=== PATIENT | female | born 1965 | race Caucasian/White ===

== ENCOUNTER 2021-03-25 07:33 | Outpatient (REF) | payer OTHER, SELFPAY ==
--- NOTE | ~2021-03-25 | MM_ITS ---
EXAMINATION: MM SCREENING DIGITAL BREAST TOMOSYNTHESIS, BILATERAL CLINICAL INFORMATION: Screening. Asymptomatic. The lifetime risk of breast cancer based on the Tyrer-Cuzick Model is 10%. COMPARISON: Mammography: 02/01/2020, 01/19/2019, 04/27/2017, 03/14/2016; ultrasound right breast 03/21/2016. TECHNIQUE: Digital breast tomosynthesis is performed in both the craniocaudal and mediolateral oblique views along with computer-aided detection (CAD). Synthesized 2D images are generated from the tomosynthesis. FINDINGS: There are scattered areas of fibroglandular density (ACR BI-RADS breast composition Category b). There are no significant masses, abnormal calcifications, or other abnormalities. There is small smooth stable nodule central right breast similar to prior exams, likely the cyst noted on prior ultrasound. The axilla and skin contours are unremarkable. No significant changes. MM/MM tomosynthesis screening BI IMPRESSION: No mammographic evidence of malignancy. ASSESSMENT: BI-RADS 2: Benign RECOMMENDATION: Routine annual mammography screening. This patient's information was entered into a reminder system with a target due date for their next mammogram.
== END 2021-03-25 07:34 | disposition home or self-care (01) ==
LOC: HO.MAMMO 07:33
PROVIDERS: Visit Provider Family Medicine
DX: Z12.31 Encounter for screening mammogram for malignant neoplasm of breast (principal)
CPT/HCPCS: 77063; 77067

== ENCOUNTER → 2021-04-16 08:32 | Outpatient (BNVA) | payer OTHER, SELFPAY | PROVIDERS: PCP Family Medicine; Visit Provider Obstetrics & Gynecology ==

== ENCOUNTER 2022-01-17 10:29 | Emergency (ER) | payer OTHER, SELFPAY ==
--- NOTE | ~2022-01-17 | CT_ITS ---
EXAMINATION: CT ABDOMEN AND PELVIS WITH CONTRAST CLINICAL INFORMATION: Right upper quadrant pain. Gallstones. COMPARISON: Previous abdominal ultrasound from earlier the same day TECHNIQUE: Multidetector volumetric images were obtained from the superior aspect of the liver through the pubic symphysis following administration 85 mL of Omnipaque 350 intravenous contrast. Sagittal and coronal reformatted images were obtained on the technologist's workstation. Oral contrast: Yes This CT examination was performed using dose optimization techniques as appropriate, variously including the following: *Automated exposure control *Adjustment of mA and/or kV according to patient size (this includes techniques or standardized protocols for targeted exams where dose is matched to indication/reason for exam; i.e. extremities or head) *Use of iterative reconstruction technique DLP: 745 mGy-cm FINDINGS: LUNG BASES: The visualized lung bases are unremarkable. LIVER, GALLBLADDER, AND BILIARY TREE: The liver is normal in size, shape, and attenuation. No focal hepatic lesion or biliary ductal dilatation is present. There is a gallstone in the gallbladder. The gallbladder is otherwise normal-appearing. PANCREAS: Unremarkable. SPLEEN: Unremarkable. ADRENAL GLANDS: Unremarkable. KIDNEYS AND URETERS: The kidneys are normal in size, shape, and attenuation. No hydronephrosis, hydroureter, or calculi seen. No perinephric stranding. BLADDER: Not optimally distended. There may be mild diffuse bladder wall thickening. GASTROINTESTINAL TRACT: There is mild diverticulosis of the colon. No evidence of diverticulitis. The small and large bowel are otherwise unremarkable. The appendix is unremarkable. There is a moderate size esophageal hernia. There is question of wall thickening of the visualized distal thoracic esophagus. ABDOMINAL WALL: No significant hernia is appreciated. LYMPH NODES: Normal. VASCULAR: Unremarkable. PELVIC VISCERA: Unremarkable. OSSEOUS STRUCTURES: Unremarkable. CT/CT abdomen pelvis w IV con IMPRESSION: Gallstone. No evidence of acute cholecystitis by CT scan. Moderate esophageal hernia and question wall thickening of the visualized thoracic esophagus. Diverticulosis of the colon. No evidence of diverticulitis. Bladder not optimally distended. There is question of mild diffuse bladder wall thickening. Fleischner guidelines were followed.
--- NOTE | ~2022-01-17 | US_ITS ---
EXAMINATION: US ABDOMEN LIMITED CLINICAL INFORMATION: Right upper quadrant/epigastric pain. COMPARISON: None TECHNIQUE: Real-time imaging of the right upper quadrant abdominal viscera. FINDINGS: PANCREAS: Not visualized. LIVER: Normal. The liver is normal in size. The liver contour is normal. Parenchymal echogenicity is normal. No focal hepatic lesion. There is no intrahepatic biliary duct dilatation seen. GALLBLADDER: There is a gallstone in the gallbladder measuring 2.3 x 1.9 cm. The gallbladder is normal in size. The gallbladder wall is normal. There is no pericholecystic fluid. COMMON BILE DUCT: Normal in caliber measuring 0.3 cm in diameter. RIGHT KIDNEY: Normal. No hydronephrosis. No renal calculi or focal parenchymal lesions. The kidney measures 11.7 cm in maximum dimension. FREE FLUID: None. US/US abdomen limited IMPRESSION: Gallstone. Nonvisualization of the pancreas.
[2022-01-17 10:37] VITALS: BP 154/82; PULSE 67; RESP 16; TEMP 36.5; O2SAT 100; BMI 34.7
--- NOTE | 2022-01-17 11:13 | ECG_ITS ---
Test Reason : ABDOMINAL PAIN Blood Pressure : / mmHG Vent. Rate : 061 BPM Atrial Rate : 061 BPM P-R Int : 156 ms QRS Dur : 088 ms QT Int : 428 ms P-R-T Axes : 053 008 030 degrees QTc Int : 430 ms Normal sinus rhythm normal ECG No previous ECGs available Referred By: Josefa Mireles Electronically Signed By:Dontrell Prince
[2022-01-17 11:52] LABS: Appearance Urine HAZY; Color Urine YELLOW; Glucose Urine UA NEG (NEG); Leukocyte Esterase Urine NEG (NEG); Nitrite Urine NEG (NEG); PH 6.5 (5.0-8.0); Specific Gravity - Urine 1.015 (1.005-1.025); Urine Blood NEG (NEG); Urine Ketones NEG (NEG); Urine Protein NEG (NEG-TRACE)
[2022-01-17 12:02] LABS: MANUAL DIFF FLAG NO
[2022-01-17] MEDS: Ketorolac Tromethamine 15 MG/ML VIAL IVPUSH (12:02)
[2022-01-17] MEDS: 0.9 % Sodium Chloride 1,000 ML 999 ML IV (12:02)
[2022-01-17] MEDS: Famotidine/PF 20 MG/2 ML VIAL IVPUSH (12:02)
[2022-01-17] MEDS: ondansetron HCL 4 MG/2 ML VIAL IVPUSH (12:02)
[2022-01-17] MEDS: Magnesium Hydrox/Alum Hydrox 30 ML ORAL.SUSP PO (12:03)
[2022-01-17 12:05] LABS: Basophils Percent Auto 0.7 % (0-2); Eosinophils Absolute Auto 0.3 X10*3/uL (0.0-0.4); Eosinophils Percent Auto 4.8 % (0-4); Hematocrit 41.9 % (37.0-47.0); Hemoglobin 13.3 g/dl (12.0-16.0); Imm Gran Abs Auto 0.01 X10*3/uL (0.00-0.03); Imm Gran Pct Auto 0.2 % (0.0-0.4); Lymphocytes Absolute Auto 1.3 X10*3/uL (1.2-4.9); Lymphocytes Percent Auto 21.8 % (20-40); Mean Corpuscular HGB Conc 31.7 g/dl (31.0-35.0); Mean Corpuscular Hemoglobin 24.2 pg (27.0-33.0); Mean Corpuscular Volume 76.3 fL (80.0-98.0); Monocytes Absolute Auto 0.4 X10*3/uL (0.1-1.2); Neutrophils Absolute Auto 3.9 x10*3/uL (2.0-8.3); Neutrophils Percent Auto 65.5 % (45-73); Platelet Count 243 X10*3/uL (160-400); Red Blood Count 5.49 X10*6/uL (4.20-5.50); Red Cell Distribution Width 16.1 % (11.0-16.0)
[2022-01-17 12:18] LABS: COVID-19 Test Negative (Negative); IDNOW Serial# 16C4AD1C
--- NOTE | 2022-01-17 12:21 | ED.ABDPAIN ---
HPI - Abdominal Pain General Chief Complaint: Abdominal Pain Stated Complaint: Abd pain Time Seen by Provider: 01/17/22 10:47 Source: patient Mode of arrival: ambulatory History of Present Illness HPI narrative: 57-year-old female with no significant past medical history presenting to the ED complaining of RUQ abdominal pain radiating around back/epigastrium x3 days. Admits to associated nausea. Reports pain is constant. Denies fever, chills, vomiting, diarrhea/constipation, dysuria/hematuria, CP/SOB, cough MD elicited complaint: abdominal pain Pertinent past history: none Onset (ago): day(s) Related Data Home Medications Medication Instructions Recorded Confirmed fluticasone propionate 250 1 inh INHALATION BID 04/16/21 mcg/actuation blister powder for inhalation (Flovent Diskus) Previous Rx's Medication Instructions Recorded ondansetron 4 mg disintegrating 4 mg PO Q8H PRN #10 tab 01/17/22 tablet oxycodone-acetaminophen 5 mg-325 1 tab PO Q8H PRN 3 Days #9 tab 01/17/22 mg tablet (Percocet) Allergies Allergy/AdvReac Type Severity Reaction Status Date / Time No Known Allergies Allergy Verified 01/17/22 10:40 Review of Systems Review of Systems Constitutional: No Fever, No Chills, No Fatigue, No Malaise ENT/Mouth: No Ear Pain, No Hoarseness, No sore throat, No Rhinorrhea, No Swallowing Difficulty Eyes: No Eye Pain, No Swelling, No Redness Cardiovascular: No Chest Pain, No SOB, No Dyspnea on Exertion, No Orthopnea, No Edema, No Palpitations Respiratory: No Cough, No Sputum, No Dyspnea Gastrointestinal: + Nausea, No Vomiting, No Diarrhea, No Constipation, + Abdominal pain Genitourinary: No irregular bleeding, No Dysuria, No Urinary Frequency, No Hematuria, No Urgency, No Flank Pain Musculoskeletal: No joint pain, No Myalgias, No Joint Swelling Skin: No Skin Lesions, No rash Neuro: No Weakness, No Loss of Consciousness, No Dizziness, No Headache Yes all other systems are reviewed and are negative [facility] Past Medical History Attestation statement: The following information was validated with the patient. Medical History (Updated 01/17/22 @ 14:59 by Denis Curiel MD) Allergies Gallstones Surgical History Hx of foot surgery Family History Family History Paternal Aunt Breast cancer Maternal Aunt Lung cancer Social History Social History Alcohol intake: never Patient Tobacco Use Status: Never used Tobacco Use of substances other than those prescribed or required for medical reasons: No Advance Directives: No Advance Directives Information Provided: No Gender identity: Female Physical Exam ED Vital Signs: Vital Signs - 24 hr 01/17/22 10:37 01/17/22 13:20 01/17/22 13:42 Temperature 97.7 F 97.9 F Pulse Rate 67 57 64 Respiratory Rate 16 18 16 Blood Pressure 154/82 H 115/81 159/84 H Pulse Oximetry 100 100 100 BMI result Body Mass Index 34.7 Const General: cooperative, healthy appearing and no acute distress Orientation/consciousness: patient oriented x3 Limitations: no limitations HENMT Head: Yes normal to inspection and Yes normocephalic Ears: hearing grossly normal bilaterally General nose exam: Normal external nose present Face and sinus: Yes normal facial exam Eyes General: appearance normal, both eyes and all related structures EOM: EOMs intact bilaterally Neck Neck: Yes normal visual inspection and Yes no meningeal signs Resp Effort & Inspection: normal respiratory effort and no respiratory distress Auscultation: clear to auscultation bilaterally Cardio Rate: regular rate Heart sounds: S1 normal heart sound present and S2 normal heart sound present GI Inspection: Yes normal to inspection Palpation (GI): Soft to palpation, Tenderness to palpation present (GI) in the RUQ, no guarding and not rigid General: Yes no CVA tenderness Back/Spine/Pelvis Back: no CVA tenderness Skin Rashes: no rashes Wounds: no wounds Neuro General: patient oriented x3 and no meningeal signs Gait exam (Neuro): Normal gait present Extrem General: Yes normal to inspection, Yes no pedal edema and Yes no calf tenderness Course Course Course Narrative: -labs unremarkable. UA negative. US abdomen limited IMPRESSION: Gallstone. Nonvisualization of the pancreas. >> case discussed with general surgery, Dr. Curiel, recommended CT with IV contrast CT abdomen pelvis w con IMPRESSION: Gallstone. No evidence of acute cholecystitis by CT scan. Moderate esophageal hernia and question wall thickening of the visualized thoracic esophagus. Diverticulosis of the colon. No evidence of diverticulitis. Bladder not optimally distended. There is question of mild diffuse bladder wall thickening. ? -Dr Curiel evaluated patient in the ED, offered patient cholecystectomy however patient would rather wait and follow up outpatient. Dr. Curiel & radiologist reviewed images. Plan will be to DC home with few days of narcotic pain medication and close general surgery follow-up in the office. Discussed with patient and at bedside worrisome signs and symptoms and strict return precautions and needed close follow-up with General surgery. They verbalized understanding and feel safe for discharge home at this time MDM - Abdominal Pain MDM Narrative Medical decision making narrative: 57-year-old female with no significant past medical history presenting to the ED complaining of RUQ abdominal pain radiating around back/epigastrium x3 days. On exam vital signs stable, NAD/nontoxic, abdomen soft with RUQ TTP, no rebound or guarding, no CVAT. Concern for cholecystitis/lithiasis vs pancreatitis vs ? Atypical ACS. Lower concern for renal stone/pyelo. Unlikely appendicitis/diverticulitis plan: Labs, UA, abdomen ultrasound, symptomatic treatment, re-evaluation Differential Diagnosis Differential diagnosis: Likely abdominal pain and pancreatitis Medical Records Attestation: I reviewed the patient's medical records. Lab Data Attestation: I reviewed the patient's lab results. Result diagrams: 01/17/22 11:55 01/17/22 11:55 Labs: Lab Results 01/17/22 01/17/22 01/17/22 Range/Units 11:46 11:55 11:55 WBC 6.0 (4.8-10.8) X10*3/uL RBC 5.49 (4.20-5.50) X10*6/uL Hgb 13.3 (12.0-16.0) g/dl Hct 41.9 (37.0-47.0) % MCV 76.3 L (80.0-98.0) fL MCH 24.2 L (27.0-33.0) pg MCHC 31.7 (31.0-35.0) g/dl RDW 16.1 H (11.0-16.0) % Plt Count 243 (160-400) X10*3/uL MPV 10.0 (9.4-12.3) fL Immature Gran % (Auto) 0.2 (0.0-0.4) % Neut % (Auto) 65.5 (45-73) % Lymph % (Auto) 21.8 (20-40) % [place] % (Auto) 7.0 (2-11) % Eos % (Auto) 4.8 H (0-4) % Baso % (Auto) 0.7 (0-2) % Lymph # (Auto) 1.3 (1.2-4.9) X10*3/uL [place] # (Auto) 0.4 (0.1-1.2) X10*3/uL Eos # (Auto) 0.3 (0.0-0.4) X10*3/uL Baso # (Auto) 0.0 (0.0-0.2) X10*3/uL Abs Immat Gran (auto) 0.01 (0.00-0.03) X10*3/uL Absolute Neuts (auto) 3.9 (2.0-8.3) x10*3/uL Absolute Nucleated RBC 0.000 (0.0-0.012) X10*3/uL Nucleated RBC % (auto) 0.0 (0.0-0.2) /100WBC Sodium 141 (135-145) mmol/L Potassium 4.0 (3.3-5.1) mmol/L Chloride 105 (96-108) mmol/L Carbon Dioxide 27 (22-29) mmol/L Anion Gap 13 (12-20) BUN 13 (9-16) mg/dL Creatinine 0.76 (0.5-1.4) mg/dL Estim Creat Clear Calc 85.2 Estimated GFR > 60 Random Glucose 95 (60-115) mg/dL Calcium 9.9 (8.4-10.2) mg/dL Magnesium 2.2 (1.6-2.6) mg/dL Total Bilirubin 0.9 (0.0-1.0) mg/dL Direct Bilirubin 0.3 (0.0-0.5) mg/dL AST 19 (5-31) U/L ALT 15 (0-31) U/L Alkaline Phosphatase 104 (39-117) U/L Troponin I High Sens (<3.5-17.0) ng/L Total Protein 7.5 (6.5-8.0) g/dL Albumin 4.4 (3.5-5.0) g/dL Lipase 25 (8-78) U/L Urine Color YELLOW Urine Appearance HAZY Urine pH 6.5 (5.0-8.0) Ur Specific [place] 1.015 (1.005-1.025) Urine Protein NEG (NEG-TRACE) MG/DL Urine Glucose (UA) NEG (NEG) MG/DL Urine Ketones NEG (NEG) MG/DL Urine Blood NEG (NEG) Urine Nitrite NEG (NEG) Ur Leukocyte Esterase NEG (NEG) COVID-19 (NETTIE) (Negative) COVID-19 Clin Com 01/17/22 01/17/22 Range/Units 11:55 11:55 WBC (4.8-10.8) X10*3/uL RBC (4.20-5.50) X10*6/uL Hgb (12.0-16.0) g/dl Hct (37.0-47.0) % MCV (80.0-98.0) fL MCH (27.0-33.0) pg MCHC (31.0-35.0) g/dl RDW (11.0-16.0) % Plt Count (160-400) X10*3/uL MPV (9.4-12.3) fL Immature Gran % (Auto) (0.0-0.4) % Neut % (Auto) (45-73) % Lymph % (Auto) (20-40) % [place] % (Auto) (2-11) % Eos % (Auto) (0-4) % Baso % (Auto) (0-2) % Lymph # (Auto) (1.2-4.9) X10*3/uL [place] # (Auto) (0.1-1.2) X10*3/uL Eos # (Auto) (0.0-0.4) X10*3/uL Baso # (Auto) (0.0-0.2) X10*3/uL Abs Immat Gran (auto) (0.00-0.03) X10*3/uL Absolute Neuts (auto) (2.0-8.3) x10*3/uL Absolute Nucleated RBC (0.0-0.012) X10*3/uL Nucleated RBC % (auto) (0.0-0.2) /100WBC Sodium (135-145) mmol/L Potassium (3.3-5.1) mmol/L Chloride (96-108) mmol/L Carbon Dioxide (22-29) mmol/L Anion Gap (12-20) BUN (9-16) mg/dL Creatinine (0.5-1.4) mg/dL Estim Creat Clear Calc Estimated GFR Random Glucose (60-115) mg/dL Calcium (8.4-10.2) mg/dL Magnesium (1.6-2.6) mg/dL Total Bilirubin (0.0-1.0) mg/dL Direct Bilirubin (0.0-0.5) mg/dL AST (5-31) U/L ALT (0-31) U/L Alkaline Phosphatase (39-117) U/L Troponin I High Sens < 3.5 (<3.5-17.0) ng/L Total Protein (6.5-8.0) g/dL Albumin (3.5-5.0) g/dL Lipase (8-78) U/L Urine Color Urine Appearance Urine pH (5.0-8.0) Ur Specific [place] (1.005-1.025) Urine Protein (NEG-TRACE) MG/DL Urine Glucose (UA) (NEG) MG/DL Urine Ketones (NEG) MG/DL Urine Blood (NEG) Urine Nitrite (NEG) Ur Leukocyte Esterase (NEG) COVID-19 (NETTIE) Negative (Negative) COVID-19 Clin Com See Note ECG Data Attestation: I personally reviewed and interpreted this ECG as follows: ECG interpretation date: 01/17/22 ECG interpretation time: 11:25 Interpretation: EKG normal sinus rhythm at a rate of 61. QRS 88. QTC 430. No STEMI Discharge Plan Discharge Clinical Impression: Gallstone Patient Disposition: Home, Self-Care Instructions: Gallstones (ED) Additional Instructions: Your blood work is unremarkable. Ultrasound shows a gallstone. Your evaluated by the general surgeon, and you to follow up with him outpatient If her symptoms persist or worsen, constant worsening pain, develops fever, persistent nausea or vomiting please return to the emergency department. Percocet is an opiate pain medication, take only when pain is severe for the next 3 days. In addition Zofran is an antinausea medication, take as needed Prescriptions: New oxycodone-acetaminophen [Percocet] 5-325 mg tablet 1 tab PO Q8H PRN (Reason: pain, severe) 3 Days Qty: 9 0RF ondansetron 4 mg tablet,disintegrating 4 mg PO Q8H PRN (Reason: nausea and vomiting) Qty: 10 0RF No Action Flovent Diskus 250 mcg/actuation blister with device 1 inh inhalation BID 0RF Referrals: Denis Curiel MD [Physician] - 2 days
[2022-01-17 12:24] LABS: Troponin-I High Sensitivity < 3.5 ng/L (<3.5-17.0)
[2022-01-17 12:25] LABS: Alanine Aminotransferase 15 U/L (0-31); Albumin Level 4.4 g/dL (3.5-5.0); Alkaline Phosphatase 104 U/L (39-117); Anion Gap 13 (12-20); Aspartate Amino Transferase 19 U/L (5-31); Bilirubin Direct 0.3 mg/dL (0.0-0.5); Bilirubin Total 0.9 mg/dL (0.0-1.0); Blood Urea Nitrogen 13 mg/dL (9-16); Calcium 9.9 mg/dL (8.4-10.2); Carbon Dioxide 27 mmol/L (22-29); Chloride 105 mmol/L (96-108); Creatinine Clr Calc Pharmacy 85.2; Estimated Glomerular Filt Rate > 60; Glucose Random 95 mg/dL (60-115); Lipase 25 U/L (8-78); Magnesium 2.2 mg/dL (1.6-2.6); Sodium 141 mmol/L (135-145); Total Protein 7.5 g/dL (6.5-8.0)
[2022-01-17 13:20] VITALS: BP 115/81; PULSE 57; RESP 18; TEMP 36.6; O2SAT 100
[2022-01-17] MEDS: Morphine Sulfate 2 MG/ML CARTRIDGE IVPUSH (13:40)
[2022-01-17 13:42] VITALS: BP 159/84; PULSE 64; RESP 16; O2SAT 100
--- NOTE | 2022-01-17 14:27 | PC.NURSE ---
rn to rn given to letitia, pt/family aware of plan of care for surgery. pt states that she had green tea and bite of oatmeal earlier this am around [phone], letitia/dr. bella aware.
[2022-01-17] MEDS: iohexoL 350 MG/ML 100 ML INFUS..BTL IV (14:37)
--- NOTE | 2022-01-17 14:54 | PM.CNGS ---
History of Present Illness Consult details Consult date: 01/17/22 Narrative: 57 year old female referred gallstones. She seen to the ER this morning because of what she described as epigastric and right-sided abdominal pain for about 3 days. She says this is constant although is normally low intensity. She denies any nausea or vomiting. She says that she has had good oral intake and as a matter of fact had a good breakfast this morning. She denies any other GI complaints. She had an ultrasound showing gallstones without cholecystitis. I was therefore asked to consult. Review of Systems Constitutional: Constitutional: Denies chills and Denies fever(s) Cardiovascular: Cardiovascular: Denies chest pain, Denies dyspnea and Denies dyspnea on exertion Respiratory: Respiratory: Denies cough, Denies dyspnea and Denies dyspnea on exertion Gastrointestinal: Gastrointestinal: Denies hematochezia and Denies change in bowel habits Genitourinary: Genitourinary: Denies hematuria Musculoskeletal: Musculoskeletal: Denies back pain and Denies limited range of motion Neurologic: Denies focal weakness and Denies convulsions Psychiatric: Psychiatric: Denies depression and Denies mood swings [facility] Past Medical History Medical History (Updated 01/18/22 @ 00:02 by Jayne Gleason) Allergies Gallstones Family History Family History Paternal Aunt Breast cancer Maternal Aunt Lung cancer Surgical History Surgical History Hx of foot surgery Social History Social History Alcohol intake: never Patient Tobacco Use Status: Never used Tobacco Use of substances other than those prescribed or required for medical reasons: No Advance Directives: No Advance Directives Information Provided: No Gender identity: Female Meds Allergies Allergy/AdvReac Type Severity Reaction Status Date / Time No Known Allergies Allergy Verified 01/17/22 10:40 Home Medications Medication Instructions Recorded Confirmed Last Taken Type fluticasone propionate 250 1 inh INHALATION BID 04/16/21 Unknown History mcg/actuation blister powder for inhalation (Flovent Diskus) Physical Exam Vital Signs: Vital Signs: Last Vital Signs Temp 97.9 F 01/17/22 13:20 Pulse 64 01/17/22 13:42 Resp 16 01/17/22 13:42 BP 159/84 H 01/17/22 13:42 Pulse Ox 100 01/17/22 13:42 BMI result Body Mass Index 34.7 Const: Other: Looks well General: comfortable and no acute distress Orientation/consciousness: patient oriented x3 Neck: Neck: Yes no lymphadenopathy Resp: Auscultation: clear to auscultation bilaterally Cardio: Rhythm: regular rhythm GI: Other: No Lynn's sign, no palpable masses Palpation (GI): Soft to palpation, nontender and no guarding Neuro: General: patient oriented x3 Results Labs Result diagrams: 01/17/22 11:55 01/17/22 11:55 Labs: Abnormal lab results 01/17/22 Range/Units 11:55 MCV 76.3 L (80.0-98.0) fL MCH 24.2 L (27.0-33.0) pg RDW 16.1 H (11.0-16.0) % Eos % (Auto) 4.8 H (0-4) % Short CBC 01/17/22 Range/Units 11:55 WBC 6.0 (4.8-10.8) X10*3/uL Hgb 13.3 (12.0-16.0) g/dl Hct 41.9 (37.0-47.0) % Plt Count 243 (160-400) X10*3/uL BMP 01/17/22 11:55 Sodium 141 Potassium 4.0 Chloride 105 Carbon Dioxide 27 BUN 13 Creatinine 0.76 Calcium 9.9 Liver Function 01/17/22 Range/Units 11:55 Total Bilirubin 0.9 (0.0-1.0) mg/dL Direct Bilirubin 0.3 (0.0-0.5) mg/dL AST 19 (5-31) U/L ALT 15 (0-31) U/L Alkaline Phosphatase 104 (39-117) U/L Albumin 4.4 (3.5-5.0) g/dL Urine 01/17/22 Range/Units 11:46 Urine Color YELLOW Urine Appearance HAZY Urine pH 6.5 (5.0-8.0) Ur Specific [place] 1.015 (1.005-1.025) Urine Protein NEG (NEG-TRACE) MG/DL Urine Glucose (UA) NEG (NEG) MG/DL All other labs normal. Imaging Abdomen CT scan report/results: report reviewed and image reviewed CT scan - pelvis: report reviewed and image reviewed Abdominal ultrasound report/results: report reviewed and image reviewed Assessment and Plan (1) Gallstones: Status: Acute She has had abdominal pain, mostly epigastric area on the right side for the past 3 days. She describes this as low intensity although she says that ?it is there?. She denies any nausea or vomiting. She has good oral intake. I have reviewed her imaging studies. She both had an ultrasound and CAT scan and have reviewed this multiple times with the radiologist. There was note of a gallstone although this is not impacted. There is no evidence of any cholecystitis. The gallbladder is not thickened and there is no pericholecystic fluid. Interestingly, the patient is actually not tender on palpation and does not have any Lynn's sign. She does had this steady contents the pain on the area including the epigastric area. She has no leukocytosis. LFTs are normal. I therefore explained to her that despite the fact that the only abnormal finding on her imaging is that she has gallstones, the gallbladder is not actually inflamed and the gallstone is not impacted on the neck. This appears to be actually floating in the lumen of the gallbladder. I therefore explained to her that I am uncertain as to whether the gallstone is actually etiology of her pain. However, since she has had this pain for 3 days, even if of low intensity, I did offer to proceed with laparoscopic cholecystectomy and possible open today. I explained to her the technique of this procedure. I reviewed the risks including but not limited to bleeding, infections, bowel injury, injury to the liver and the bile ducts, as well as the benefits and alternatives. I also explained to her that I cannot guarantee that her symptoms will resolve fully with cholecystectomy as her overall clinical picture is equivocal. After long discussion with her, she stated that she does not feel that she is ready to undergo surgery at this time. I also offered for her to be observed in the hospital for a day or 2 see how she is doing. She does state that she has pain but she feels that this is low intensity and she would like to go home as long she gets pain medications. She says that she will call my office for a follow-up next week. I did tell her that if nothing else comes up down the line as a possible etiology of her pain and if her pain is persistent, then it may be reasonable to proceed with a cholecystectomy. She is comfortable with going home. Her was with her during the visit. I discussed the above with the ER physician. Procedures Date of Service Date of Service: 01/17/22
== END 2022-01-17 15:26 | disposition home or self-care (01) ==
PROVIDERS: Physician Assistant; Emergency Provider Emergency Medicine; PCP Family Medicine
DX: K80.20 Calculus of gallbladder without cholecystitis without obstruction (principal); R10.11 Right upper quadrant pain; Z20.822 Contact with and (suspected) exposure to COVID-19; Z79.899 Other long term (current) drug therapy
CPT/HCPCS: 36415; 74177; 76705; 80048; 80076; 81003; 83690; 83735; 84484; 85025; 87635; 93005; 96361; 96374; 96375; 99285; 99291; J1885; J2270; J2405; Q9967

== ENCOUNTER 2022-07-18 09:57 | Outpatient (REF) | payer OTHER, SELFPAY ==
--- NOTE | ~2022-07-18 | MM_ITS ---
EXAMINATION: MM SCREENING DIGITAL BREAST TOMOSYNTHESIS, BILATERAL CLINICAL INFORMATION: Screening. Asymptomatic. The lifetime risk of breast cancer based on the Tyrer-Cuzick Model is 14%. COMPARISON: Mammography: 03/25/2021, 02/01/2020, 01/19/2019 TECHNIQUE: Digital breast tomosynthesis is performed in both the craniocaudal and mediolateral oblique views along with computer-aided detection (CAD). Synthesized 2D images are generated from the tomosynthesis. FINDINGS: There are scattered areas of fibroglandular density (ACR BI-RADS breast composition Category b). There are no significant masses, abnormal calcifications, or other abnormalities. Parenchymal pattern is similar to prior studies. No developing density. No architectural abnormality. The axilla are unremarkable. MM/MM tomosynthesis screening BI IMPRESSION: No mammographic evidence of malignancy. ASSESSMENT: BI-RADS 1: Negative RECOMMENDATION: Routine annual mammography screening. This patient's information was entered into a reminder system with a target due date for their next mammogram.
== END 2022-07-18 09:58 | disposition home or self-care (01) ==
LOC: HO.MAMMO 09:57
PROVIDERS: Visit Provider Advanced Practice Midwife
DX: Z12.31 Encounter for screening mammogram for malignant neoplasm of breast (principal)
CPT/HCPCS: 77063; 77067

== ENCOUNTER 2022-12-29 16:25 | Outpatient (REF) | payer OTHER, SELFPAY ==
[2022-12-29 18:12] LABS: Thyroid Stimulating Hormone 2.94 uIU/mL (0.32-4.0)
== END 2022-12-29 16:26 | disposition home or self-care (01) ==
LOC: HO.LAB 16:25
PROVIDERS: PCP Family Medicine; Visit Provider Family Medicine
DX: R63.5 Abnormal weight gain (principal)
CPT/HCPCS: 36415; 84443

== ENCOUNTER 2023-07-31 07:29 | Outpatient (REF) | payer OTHER, SELFPAY | END 2023-07-31 07:30 | disposition home or self-care (01) | LOC: HO.MAMMO 07:29 | PROVIDERS: Visit Provider Family Medicine | DX: Z12.31 Encounter for screening mammogram for malignant neoplasm of breast (principal) | CPT/HCPCS: 77063; 77067 ==

== ENCOUNTER → 2023-07-31 07:30 | Outpatient (BNV) | payer OTHER, SELFPAY | PROVIDERS: Visit Provider Radiology Diagnostic Radiology | DX: Z12.31 Encounter for screening mammogram for malignant neoplasm of breast (principal) | CPT/HCPCS: 77063; 77067 ==

== ENCOUNTER 2023-09-09 16:28 | Outpatient (REF) | payer OTHER, SELFPAY | END 2023-09-09 16:29 | disposition home or self-care (01) | LOC: HO.LAB 16:28 | PROVIDERS: PCP Family Medicine; Visit Provider Family Medicine | DX: M81.0 Age-related osteoporosis without current pathological fracture (principal) | CPT/HCPCS: 36415; 82306 ==

== ENCOUNTER 2023-10-21 08:09 | Outpatient (AMB) | payer OTHER, SELFPAY ==
--- NOTE | 2023-10-21 08:12 | A.OFFVIS_ITS ---
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 She is doing well with no concerns. Attempting to eat a healthy diet with calcium and vitamin D and stays active with exercise. Currently sexually active. Denies any vaginal dryness or irritation. Last pap smear; 2018. Last mammogram; 2022. PFSH Medical History Gallstones Allergies Surgical History Hx of foot surgery Family History Paternal Aunt Breast cancer Maternal Aunt Lung cancer Social History Alcohol intake: current Alcohol intake frequency: a few times a month Patient Tobacco Use Status: Never used Tobacco Current occupational status: employed Current occupation: [employer] Sexual orientation: Straight/Heterosexual Gender identity: Female Female Reproductive History Menstrual Menopause type: natural Total pregnancies: 3 Full term: 2 Number of Living Children: 2 Ab spontaneous: 1 Date of last pap smear: 01/25/19 (neg pap and hpv) History of abnormal pap smear: Yes (08/31 ascus) Date of Mammogram: 07/31/23 (Birad 1) Review of Systems Const All systems reviewed & are unremarkable except as noted in HPI and below Reports as per HPI Eyes Reports no additional complaints ENT Reports no additional complaints Card Reports no additional complaints Resp Reports no additional complaints GI Reports as per HPI and Reports no additional complaints Reports as per HPI Musc Reports no additional complaints Skin/Breast Reports as per HPI Neuro Reports no additional complaints Psych Reports no additional complaints Endo Reports no additional complaints Atif/Lymph Reports no additional complaints Aller/Immun Reports no additional complaints Physical Exam Vital Signs: Last Vital Signs BP 114/76 10/21/23 08:13 BMI result Body Mass Index 36.8 Const General: cooperative, healthy appearing, no acute distress, well developed and alert Orientation/consciousness: patient oriented x3 HEENT Head: Yes normal to inspection Eyes General: appearance normal, both eyes and all related structures Neck Neck: Yes normal visual inspection Thyroid: Thyroid normal Chest Chest palpation & inspection: normal inspection of the chest and other (no puckering, dimpling, peau de orange, retraction, discharge, masses) Breast/axilla inspection: normal inspection of the breasts Breast/axilla palpation: normal palpation of the breasts Resp Effort & Inspection: normal respiratory effort GI Inspection: Yes normal to inspection Palpation (GI): Soft to palpation Rectal Exam - Female: deferred General: Yes bladder normal to palpation External Female Exam: normal external appearance and normal appearance of the urethra Speculum Exam - Vagina: normal appearance of the vagina, normal palpation and normal vaginal discharge Speculum Exam - Cervix: normal appearance of the cervix and normal palpation Bimanual exam- vagina & uterus: normal bimanual exam, normal palpation, uterine size normal, bladder normal to palpation, normal palpation and non-tender Bimanual Exam- Adnexa, other: no masses Skin General skin exam: no rashes or lesions noted Rashes: no rashes Neuro General: patient oriented x3 Cognition (Neuro): normal cognition Extrem General: Yes normal to inspection Psych Attitude: cooperative Thought process: Normal thought process present Assessment & Plan Assessment & Plan (1) Encounter for well woman exam with routine gynecological exam: Code(s): Z01.419 - Encounter for gynecological examination (general) (routine) without abnormal findings Plan Discussed: Current recommendations for pap smears per ASCCP guidelines. Breast awareness, periodic self breast exams and yearly mammogram. Maintain a healthy lifestyle, well balanced diet including Calcium 1,200 mg and Vitamin D 600 IU daily, and routine exercise. Contact the office with any postmenopausal bleeding. Sign up for the patient portal if not already enrolled. All of her questions and concerns were addressed to the best of my ability. 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 Coding Level of Care Code Est Pt Prev Care 40-64y(95321) Diagnoses Encounter for well woman exam with routine gynecological exam Z01.419
[2023-10-21 08:13] VITALS: BP 114/76; BMI 36.8
== END 2023-10-21 08:46 | disposition home or self-care (01) ==
PROVIDERS: PCP Family Medicine; Visit Provider Advanced Practice Midwife
DX: Z01.419 Encounter for gynecological examination (general) (routine) without abnormal findings (principal)
CPT/HCPCS: 99396

== ENCOUNTER → 2023-10-21 08:09 | Outpatient (BNVA) | payer OTHER, SELFPAY | PROVIDERS: PCP Family Medicine; Visit Provider Advanced Practice Midwife ==

== ENCOUNTER 2024-08-09 07:27 | Outpatient (REF) | payer OTHER, SELFPAY ==
--- NOTE | ~2024-08-09 | MM_ITS ---
EXAMINATION: MM SCREENING DIGITAL BREAST TOMOSYNTHESIS, BILATERAL CLINICAL INFORMATION: Screening. Asymptomatic. COMPARISON: Mammography: Comparison is made with available priors TECHNIQUE: Digital breast mammography with tomosynthesis is performed in both the craniocaudal and mediolateral oblique views along with computer-aided detection (CAD). FINDINGS: There are scattered areas of fibroglandular density (ACR BI-RADS breast composition Category b). There are no significant masses, abnormal calcifications, or other abnormalities. MM/MM tomosynthesis screening BI IMPRESSION: No mammographic evidence of malignancy. ASSESSMENT: BI-RADS BI-RADS 1 - Negative RECOMMENDATION: Routine annual mammography screening. 1 year F/U This examination should not preclude the clinical evaluation of a suspicious palpable abnormality. This patient's information was entered into a reminder system with a target due date for their next mammogram. Electronically signed by: Sumaya Moreira DO 08/19/2024 10:47 AM EDT
== END 2024-08-09 07:28 | disposition home or self-care (01) ==
LOC: HO.MAMMO 07:27
PROVIDERS: PCP Family Medicine; Visit Provider Family Medicine
DX: Z12.31 Encounter for screening mammogram for malignant neoplasm of breast (principal)
CPT/HCPCS: 77063; 77067

== ENCOUNTER → 2024-08-09 07:30 | Outpatient (BNV) | payer OTHER, SELFPAY | PROVIDERS: PCP Family Medicine; Visit Provider Internal Medicine | DX: Z12.31 Encounter for screening mammogram for malignant neoplasm of breast (principal) | CPT/HCPCS: 77063; 77067 ==

== ENCOUNTER 2024-10-12 11:50 | Outpatient (REF) | payer OTHER, SELFPAY ==
[2024-10-12 12:07] LABS: MANUAL DIFF FLAG NO
[2024-10-12 12:19] LABS: Basophils Absolute Auto 0.1 X10*3/uL (0.0-0.2); Basophils Percent Auto 1.6 % (0-2); Eosinophils Absolute Auto 0.5 X10*3/uL (0.0-0.4); Eosinophils Percent Auto 11.5 % (0-4); Imm Gran Abs Auto 0.01 X10*3/uL (0.00-0.03); Imm Gran Pct Auto 0.2 % (0.0-0.4); Lymphocytes Absolute Auto 0.9 X10*3/uL (1.2-4.9); Lymphocytes Percent Auto 22.1 % (20-40); Mean Corpuscular HGB Conc 24.2 g/dl (31.0-35.0); Mean Corpuscular Hemoglobin 14.9 pg (27.0-33.0); Mean Platelet Volume 9.1 fL (9.4-12.3); Monocytes Absolute Auto 0.3 X10*3/uL (0.1-1.2); Monocytes Percent Auto 7.3 % (2-11); NRBC Pct Auto 0.5 /100WBC (0.0-0.2); Neutrophils Absolute Auto 2.4 x10*3/uL (2.0-8.3); Neutrophils Percent Auto 57.3 % (45-73); Platelet Count 237 X10*3/uL (160-400); Red Cell Distribution Width 21.8 % (11.0-16.0); White Blood Count 4.3 X10*3/uL (4.8-10.8)
[2024-10-12 12:46] LABS: Blood Urea Nitrogen 14 mg/dL (9-16); Estimated Glomerular Filt Rate > 60; Glucose Fasting 100 mg/dL (60-99)
[2024-10-12 12:58] LABS: Hemoglobin 5.8 g/dl (12.0-16.0); Mean Corpuscular Volume 61.5 fL (80.0-98.0)
== END 2024-10-12 11:51 | disposition home or self-care (01) ==
LOC: HO.LAB 11:50
PROVIDERS: PCP Family Medicine; Visit Provider Family Medicine
DX: J45.909 Unspecified asthma, uncomplicated (principal); R55 Syncope and collapse
CPT/HCPCS: 36415; 82565; 82947; 84520; 85025

== ENCOUNTER 2024-10-12 13:50 | Emergency (ER) | payer OTHER, SELFPAY ==
[2024-10-12] VITALS (15 sets, daily range): BP systolic 103–134; BP diastolic 59–84; PULSE 71–92; RESP 12–18; TEMP 36.6–37.1; O2SAT 98–100; BMI 34.2
--- NOTE | ~2024-10-12 | CT_ITS ---
EXAMINATION: CT CHEST, ABDOMEN AND PELVIS WITH CONTRAST CLINICAL INFORMATION: 10 pounds of weight loss and severe anemia; question malignancy. COMPARISON: CT abdomen and pelvis dated 01/17/2022. TECHNIQUE: Multidetector volumetric imaging was performed from the thoracic inlet through the pubic symphysis following administration of 85 mL Omnipaque 350 intravenous contrast. Sagittal and coronal reformatted images were obtained on the technologist workstation. This CT examination was performed using dose optimization techniques as appropriate, variously including the following: *Automated exposure control. *Adjustment of mA and/or kV according to patient size (this includes techniques or standardized protocols for targeted exams where dose is matched to indication/reason for exam, i.e., extremities or head). *Use of iterative reconstruction technique. DLP: 989 mGy-cm. FINDINGS: CHEST: LUNGS: No nodule, mass or gross infiltrate is seen. There is left base linear scar/subsegmental atelectasis, without associated focal airway obstruction. There is mild small airway thickening, most pronounced at the bases. There are a few scattered tiny right base peribronchial groundglass opacities which are unchanged from 01/17/2022. The central airways appear patent. MEDIASTINUM: The thyroid is unremarkable. There are a few borderline enlarged right paratracheal lymph nodes (i.e., 10:40). 2 of the largest of these measure 1.5 x 0.9 cm and 1.3 x 0.9 cm (5:10 and 15). No thoracic aortic aneurysm or dissection is seen. There is diffuse wall thickening of the mid and distal esophagus. A moderately large hiatus hernia is seen. CORONARY ARTERY ATHEROSCLEROSIS: None. PERICARDIUM/PLEURA: There is no significant effusion. No pleural mass or thickening. CHEST WALL/AXILLA: Unremarkable. ABDOMEN/PELVIS: LIVER, GALLBLADDER, BILIARY TREE: The liver is normal in size, shape, and attenuation. No focal hepatic lesion or biliary ductal dilatation is present. A moderately large gallstone is seen within the fundus. There is no gallbladder wall thickening or pericholecystic inflammatory change. PANCREAS: Unremarkable. SPLEEN: Unremarkable. ADRENAL GLANDS: Unremarkable. KIDNEYS AND URETERS: The kidneys are normal in size, shape, and attenuation. No hydronephrosis or hydroureter or calculi seen. No perinephric stranding. BLADDER: Unremarkable. GASTROINTESTINAL TRACT: There is mild diverticulosis, without acute diverticulitis. No bowel obstruction, free intraperitoneal air or abscess is seen. There is no focal bowel wall thickening. The vermiform appendix is normal. ABDOMINAL WALL: There is a tiny fat-containing umbilical hernia. There is a small fat-containing left inguinal hernia. LYMPH NODES: There are shotty, nonpathologically enlarged mesenteric and para-aortic lymph nodes. No sizable abdominopelvic lymphadenopathy is seen. VASCULAR: Unremarkable. PELVIC VISCERA: The uterus and adnexa are unremarkable. OSSEOUS STRUCTURES: There is marked degenerative disc disease at L2-3 and L4-5, with vacuum disc phenomenon. There is multi-level thoracolumbar endplate arthropathy. There is right facet arthropathy at L5-S1, with subarticular cyst formation. There are degenerative changes of the right hip, with subarticular cyst formation. No acute or aggressive osseous finding is noted. CT/CT abdomen pelvis w IV con IMPRESSION: 1. No pulmonary nodule, mass or gross infiltrate is seen. 2. There is mild small airway thickening, most pronounced at the bases. There are adjacent faint right base peribronchial groundglass opacities, which are unchanged from 01/17/2022. These findings are likely infectious or inflammatory in etiology, and the interval stability is reassuring. Please correlate clinically. 3. There are pathologically enlarged paratracheal lymph nodes, as detailed. There is no pleural effusion. 4. There is diffuse wall thickening of the mid and distal esophagus, and a moderately large hiatus hernia is seen. This wall thickening may reflect an infectious, inflammatory or neoplastic etiology. This could be more fully evaluated with upper endoscopy or an upper GI series, if clinically indicated. 5. There is cholelithiasis. 6. There is mild diverticulosis, without acute diverticulitis. 7. There is no abdominopelvic mass, free fluid or lymphadenopathy. 8. There are abdominal wall hernia defects, as detailed. 9. There are degenerative changes of the spine and right hip. No aggressive osseous lesion is seen. Electronically signed by: Eric Domínguez MD 10/12/2024 07:05 PM EST
--- NOTE | 2024-10-12 14:07 | ED.GENADULT ---
HPI - General Adult General Chief complaint: Recheck/Abnormal Lab/Rx Stated complaint: abnormal labs Time Seen by Provider: 10/12/24 14:29 Source: patient and family Mode of arrival: ambulatory Limitations: no limitations History of Present Illness ED Provider: Dr. Rand Earl HPI narrative: Patient comes to the emergency room stating that she had primary care physician's office appointment today for a physical, labs were drawn, she received a phone call and was informed that her hemoglobin is low any to come to the emergency room. Patient states that she was told her hemoglobin is 5.5. Patient denies any chest pain, shortness of breath, no weakness, no dizziness or lightheadedness. Patient states that she has normal energy, exercises few times a week doing yoga. Patient denies any rectal bleeding, denies dark stool. Patient is postmenopausal. Patient denies any abdominal pain or any recent illnesses. Patient states that for a few years she was on a vegetarian diet. However, patient reintroduced animal protein into her diet by eating mostly white meets for a few months now. Patient states that her skin color looks normal to her and to her as well. Related Data Home Medications ?Medication ?Instructions ?Recorded ?Confirmed fluticasone propionate 250 1 inh inhalation BID 04/16/21 mcg/actuation blister powder for inhalation (Flovent Diskus) fexofenadine 180 mg tablet 180 mg PO DAILY 05/13/22 (Cait Allergy) Previous Rx's ?Medication ?Instructions ?Recorded ferrous gluconate 240 mg (27 mg 240 mg PO BID #90 tabs 10/12/24 iron) tablet polyethylene glycol 3350 17 17 g PO DAILY PRN constipation 10/12/24 gram/dose oral powder (Miralax) #119 grams Allergies Allergy/AdvReac Type Severity Reaction Status Date / Time No Known Allergies Allergy Verified 10/12/24 14:10 Review of Systems Review of Systems: Constitutional : No Weight loss, No Fever, No Chills, No Night Sweats, No Fatigue, No Malaise ENT/Mouth : No Hearing loss, No Ear Pain, No Nasal Congestion, No Sinus Pain, No Hoarseness, No sore throat, No Rhinorrhea, No Swallowing Difficulty Eyes: No Eye Pain, No Swelling, No Redness, No Foreign Body, No Discharge, No Vision Changes Cardiovascular : No Chest Pain, No SOB, No Dyspnea on Exertion, No Orthopnea, No Edema, No Palpitations Respiratory : No Cough, No Sputum, No Wheezing, No Smoke Exposure, No Dyspnea Gastrointestinal : No Nausea, No Vomiting, No Diarrhea, No Constipation, No abdominal Pain, No Hematochezia, No Melena Genitourinary : no irregular bleeding, No Dysuria, No Urinary Frequency, No Hematuria, No Urinary Incontinence, No Urgency, No Flank Pain, No Urinary Flow Changes, No Hesitancy Musculoskeletal : No joint pain, No Myalgias, No Joint Swelling Skin : No Skin Lesions, No rash Neuro : No Weakness, No Numbness, No Paresthesias, No Loss of Consciousness, No Dizziness, No Headache Psych : No Anxiety/Panic, No Depression, No SI/HI/AH/VH, No Social Issues, Heme/Lymph: Complaining of low hemoglobin, No Bruising, No Bleeding,No Lymphadenopathy Endocrine : No Polyuria, No Polydipsia, No Temperature Intolerance PMFSH Past Medical History Medical History Gallstones Allergies Surgical History Hx of foot surgery Family History Family History Paternal Aunt Breast cancer Maternal Aunt Lung cancer Social History Social History Alcohol intake: current Alcohol intake frequency: a few times a month Patient Tobacco Use Status: Never used Tobacco Advance Directives: No Advance Directives Information Provided: Yes Current occupational status: employed Current occupation: [employer] Sexual orientation: Straight/Heterosexual Gender identity: Female Physical Exam ED Vital Signs: Vital Signs - 24 hr 10/12/24 14:08 10/12/24 14:52 10/12/24 14:54 Temperature 98.1 F Pulse Rate 92 83 84 Respiratory Rate 16 Blood Pressure 134/76 129/72 126/68 Pulse Oximetry 100 Oxygen Delivery Method Room Air 10/12/24 14:56 10/12/24 16:00 10/12/24 16:13 Temperature 98.7 F 98.7 F Pulse Rate 88 75 72 Respiratory Rate 16 12 Blood Pressure 127/84 122/69 115/73 Pulse Oximetry 100 Oxygen Delivery Method Room Air 10/12/24 16:31 10/12/24 18:22 10/12/24 19:09 Temperature 98.5 F 98.4 F 98.4 F Pulse Rate 75 80 85 Respiratory Rate 16 15 15 Blood Pressure 112/61 115/70 103/59 L Pulse Oximetry 98 Oxygen Delivery Method Room Air 10/12/24 19:30 10/12/24 19:45 Temperature 98.1 F 98.2 F Pulse Rate 83 82 Respiratory Rate 15 17 Blood Pressure 107/69 103/76 Pulse Oximetry Oxygen Delivery Method BMI result Body Mass Index 34.2 Const Other: Appearance: Alert. Oriented X3. No acute distress. Eyes: Pupils equal, round and reactive to light. ENT: Pharynx normal. Neck: Normal inspection. Neck supple. No lymph nodes noted. No crepitus CVS: Normal heart rate and rhythm. Pulses normal. Normal S1 and S2 Respiratory: No respiratory distress. Breath sounds normal. No Wheezing. No rales Abdomen: Soft , nondistended, nontender. No rigidity. No distention. Skin: Skin warm and dry. Patient is pale. Normal skin turgor. Extremities: No lower extremity edema. No Lacerations. No Rash Neuro: Oriented X 3. No motor deficit. No sensory deficit. Moving all extremities. No slurred speech. CN 2 through 12 grossly intact Psych: calm, cooperative, normal affect Course Course Course Narrative: This is a Rapid Medical Exam performed in triage by Josefa Mireles PA-C. Full HPI, ROS and PE to be performed by primary ED provider. 59-year-old female presenting to the ED c/o sent in by PCP for low H&H 5.8/24 on outpatient labs. Patient denies complaints at present. Admits to losing weight, about 9lbs in the past month. denies SOB, N/V, lightheadedness, bloody BMs/melena. denies taking AC PE: nontoxic appearing, ambulating w/steady Plan: labs, Occult, labs, Charge nurse aware Medications Administered Discontinued Medications Generic Name Dose Route Start Last Admin Trade Name Freq PRN Reason Stop Dose Admin Iohexol 100 ml 10/12/24 15:45 10/12/24 15:45 Iohexol 350 Mg/Ml 100 Ml Infus..Btl IV 10/12/24 15:46 85 ml ONCE ONE Administration Medical Decision Making Medical Decision Making [facility] Narrative: My interpretation of labs: Patient's hemoglobin is significantly low, 5.9, hematocrit 23.9. Also, noted that patient's MCV is low, 60.4. -iron studies show a low iron level, elevated TIBC, low saturation, patient has iron deficiency anemia. Guaiac test was heme positive -given the combination of anemia, positive guaiac test, malignancy is and differential diagnosis. CT scan of the chest abdomen and pelvis has been ordered. -patient states that she had a colonoscopy done 5 years ago, states that it was normal -CT scan of the chest abdomen or pelvis: There is diffuse wall thickening of the mid and distal esophagus. This wall thickening may be infectious, inflammatory or neoplastic etiology. -Patient is aware that she has a large hiatal hernia. -I discussed with the patient that she will need an endoscopy and likely a repeat colonoscopy. -I offer admission to the patient. However, patient states that she would prefer to get her blood transfusion and be discharged once it is completed. Patient states that she will follow-up with her PCP. Also, patient will be given the phone number for Gastroenterology. Patient tolerated well the 1st unit of blood, patient to receive 2 more. As mentioned above, admission was offered but patient would prefer to be discharged once completed -I discussed with the patient and her the differential diagnosis, which includes possible malignancy. I emphasized that it is extremely important that the patient has close follow-up with her primary physician, she will need an endoscopy and possibly colonoscopy done as soon as possible. At this time, 21:00, patient receiving the 2nd unit of blood. Patient stable, asymptomatic Sign-out given to my colleague Dr. Mercado Differential Diagnosis Differential Diagnoses: The differential diagnosis associated with the presentation includes (Esophagitis, gastritis, malignancy, anemia, iron deficiency anemia, upper GI bleed, lower GI bleed) Admission/Observation Consideration of admission/observation: Escalation of care including admission/observation considered Lab Data [facility] Lab Attestation statement: I reviewed the patient's lab results. 10/12/24 14:45 10/12/24 14:45 Labs: Lab Results 10/12/24 10/12/24 10/12/24 Range/Units 14:41 14:42 14:45 WBC 5.6 (4.8-10.8) X10*3/uL RBC 3.96 L (4.20-5.50) X10*6/uL Hgb 5.9 L* (12.0-16.0) g/dl Hct 23.9 L (37.0-47.0) % MCV 60.4 L (80.0-98.0) fL MCH 14.9 L (27.0-33.0) pg MCHC 24.7 L (31.0-35.0) g/dl RDW 21.6 H (11.0-16.0) % Plt Count 274 (160-400) X10*3/uL MPV 9.5 (9.4-12.3) fL Immature Gran % (Auto) 0.2 (0.0-0.4) % Neut % (Auto) 55.9 (45-73) % Lymph % (Auto) 24.9 (20-40) % [place] % (Auto) 8.2 (2-11) % Eos % (Auto) 9.0 H (0-4) % Baso % (Auto) 1.8 (0-2) % Lymph # (Auto) 1.4 (1.2-4.9) X10*3/uL [place] # (Auto) 0.5 (0.1-1.2) X10*3/uL Eos # (Auto) 0.5 H (0.0-0.4) X10*3/uL Baso # (Auto) 0.1 (0.0-0.2) X10*3/uL Abs Immat Gran (auto) 0.01 (0.00-0.03) X10*3/uL Absolute Neuts (auto) 3.1 (2.0-8.3) x10*3/uL Absolute Nucleated RBC 0.000 (0.0-0.012) X10*3/uL Nucleated RBC % (auto) 0.0 (0.0-0.2) /100WBC PT 11.9 (10.9-12.4) SEC INR 1.0 (0.9-1.1) APTT 25.2 L (26.0-36.8) SEC Sodium 142 (135-145) mmol/L Potassium 3.6 (3.3-5.1) mmol/L Chloride 108 (96-108) mmol/L Carbon Dioxide 23 (22-29) mmol/L Anion Gap 15 (12-20) BUN 15 (9-16) mg/dL Creatinine 0.73 (0.5-1.4) mg/dL Estim Creat Clear Calc 85.9 Estimated GFR > 60 Random Glucose 108 (60-115) mg/dL Calcium 8.7 D (8.4-10.2) mg/dL Magnesium 2.1 (1.6-2.6) mg/dL Iron 19 L (30-160) mcg/dL TIBC 505 H (228-428) mcg/dL % Saturation 4 L (15-50) % Unsat Iron Binding 486 ug/dL Total Bilirubin 0.6 (0.0-1.0) mg/dL Direct Bilirubin 0.2 (0.0-0.5) mg/dL AST 25 (5-31) U/L ALT 16 (0-31) U/L Alkaline Phosphatase 80 (39-117) U/L Total Protein 6.6 (6.5-8.0) g/dL Albumin 3.9 (3.5-5.0) g/dL Lipase 17 (8-78) U/L Urine Color Yellow Urine Appearance Clear Urine pH 5.5 (5.0-9.0) Ur Specific [place] 1.025 (1.005-1.025) Urine Protein Negative (Neg-Trace) mg/dL Urine Glucose (UA) Negative (Negative) mg/dL Urine Ketones Negative (Negative) mg/dL Urine Blood Negative (Negative) Urine Nitrite Negative (Negative) Ur Leukocyte Esterase Moderate (2+) H (Negative) Urine RBC 0-2 (0-2) /HPF Urine WBC 6-10 (0-5) /HPF Ur Squamous Epith Cells 6-10 (0-2) /HPF Urine Bacteria None Seen (None Seen) Hyaline Casts >20 (0-2) /LPF Stool Occult Blood POSITIVE (NEGATIVE) Blood Type Antibody Screen Crossmatch 10/12/24 Range/Units 15:08 WBC (4.8-10.8) X10*3/uL RBC (4.20-5.50) X10*6/uL Hgb (12.0-16.0) g/dl Hct (37.0-47.0) % MCV (80.0-98.0) fL MCH (27.0-33.0) pg MCHC (31.0-35.0) g/dl RDW (11.0-16.0) % Plt Count (160-400) X10*3/uL MPV (9.4-12.3) fL Immature Gran % (Auto) (0.0-0.4) % Neut % (Auto) (45-73) % Lymph % (Auto) (20-40) % [place] % (Auto) (2-11) % Eos % (Auto) (0-4) % Baso % (Auto) (0-2) % Lymph # (Auto) (1.2-4.9) X10*3/uL [place] # (Auto) (0.1-1.2) X10*3/uL Eos # (Auto) (0.0-0.4) X10*3/uL Baso # (Auto) (0.0-0.2) X10*3/uL Abs Immat Gran (auto) (0.00-0.03) X10*3/uL Absolute Neuts (auto) (2.0-8.3) x10*3/uL Absolute Nucleated RBC (0.0-0.012) X10*3/uL Nucleated RBC % (auto) (0.0-0.2) /100WBC PT (10.9-12.4) SEC INR (0.9-1.1) APTT (26.0-36.8) SEC Sodium (135-145) mmol/L Potassium (3.3-5.1) mmol/L Chloride (96-108) mmol/L Carbon Dioxide (22-29) mmol/L Anion Gap (12-20) BUN (9-16) mg/dL Creatinine (0.5-1.4) mg/dL Estim Creat Clear Calc Estimated GFR Random Glucose (60-115) mg/dL Calcium (8.4-10.2) mg/dL Magnesium (1.6-2.6) mg/dL Iron (30-160) mcg/dL TIBC (228-428) mcg/dL % Saturation (15-50) % Unsat Iron Binding ug/dL Total Bilirubin (0.0-1.0) mg/dL Direct Bilirubin (0.0-0.5) mg/dL AST (5-31) U/L ALT (0-31) U/L Alkaline Phosphatase (39-117) U/L Total Protein (6.5-8.0) g/dL Albumin (3.5-5.0) g/dL Lipase (8-78) U/L Urine Color Urine Appearance Urine pH (5.0-9.0) Ur Specific [place] (1.005-1.025) Urine Protein (Neg-Trace) mg/dL Urine Glucose (UA) (Negative) mg/dL Urine Ketones (Negative) mg/dL Urine Blood (Negative) Urine Nitrite (Negative) Ur Leukocyte Esterase (Negative) Urine RBC (0-2) /HPF Urine WBC (0-5) /HPF Ur Squamous Epith Cells (0-2) /HPF Urine Bacteria (None Seen) Hyaline Casts (0-2) /LPF Stool Occult Blood (NEGATIVE) Blood Type AB Positive Antibody Screen NEGATIVE Crossmatch See Detail Independent Interpretation I performed an independent interpretation of an: CT Scan Radiology Impression Discussion of test interpretation with radiology: I have reviewed the radiologist's reading. Radiologist Impression: FINDINGS: CHEST: LUNGS: No nodule, mass or gross infiltrate is seen. There is left base linear scar/subsegmental atelectasis, without associated focal airway obstruction. There is mild small airway thickening, most pronounced at the bases. There are a few scattered tiny right base peribronchial groundglass opacities which are unchanged from 01/17/2022. The central airways appear patent. MEDIASTINUM: The thyroid is unremarkable. There are a few borderline enlarged right paratracheal lymph nodes (i.e., 10:40). 2 of the largest of these measure 1.5 x 0.9 cm and 1.3 x 0.9 cm (5:10 and 15). No thoracic aortic aneurysm or dissection is seen. There is diffuse wall thickening of the mid and distal esophagus. A moderately large hiatus hernia is seen. CORONARY ARTERY ATHEROSCLEROSIS: None. PERICARDIUM/PLEURA: There is no significant effusion. No pleural mass or thickening. CHEST WALL/AXILLA: Unremarkable. ABDOMEN/PELVIS: LIVER, GALLBLADDER, BILIARY TREE: The liver is normal in size, shape, and attenuation. No focal hepatic lesion or biliary ductal dilatation is present. A moderately large gallstone is seen within the fundus. There is no gallbladder wall thickening or pericholecystic inflammatory change. PANCREAS: Unremarkable. SPLEEN: Unremarkable. ADRENAL GLANDS: Unremarkable. KIDNEYS AND URETERS: The kidneys are normal in size, shape, and attenuation. No hydronephrosis or hydroureter or calculi seen. No perinephric stranding. BLADDER: Unremarkable. GASTROINTESTINAL TRACT: There is mild diverticulosis, without acute diverticulitis. No bowel obstruction, free intraperitoneal air or abscess is seen. There is no focal bowel wall thickening. The vermiform appendix is normal. ABDOMINAL WALL: There is a tiny fat-containing umbilical hernia. There is a small fat-containing left inguinal hernia. LYMPH NODES: There are shotty, nonpathologically enlarged mesenteric and para-aortic lymph nodes. No sizable abdominopelvic lymphadenopathy is seen. VASCULAR: Unremarkable. PELVIC VISCERA: The uterus and adnexa are unremarkable. OSSEOUS STRUCTURES: There is marked degenerative disc disease at L2-3 and L4-5, with vacuum disc phenomenon. There is multi-level thoracolumbar endplate arthropathy. There is right facet arthropathy at L5-S1, with subarticular cyst formation. There are degenerative changes of the right hip, with subarticular cyst formation. No acute or aggressive osseous finding is noted. CT/CT chest w IV con IMPRESSION: 1. No pulmonary nodule, mass or gross infiltrate is seen. 2. There is mild small airway thickening, most pronounced at the bases. There are adjacent faint right base peribronchial groundglass opacities, which are unchanged from 01/17/2022. These findings are likely infectious or inflammatory in etiology, and the interval stability is reassuring. Please correlate clinically. 3. There are pathologically enlarged paratracheal lymph nodes, as detailed. There is no pleural effusion. 4. There is diffuse wall thickening of the mid and distal esophagus, and a moderately large hiatus hernia is seen. This wall thickening may reflect an infectious, inflammatory or neoplastic etiology. This could be more fully evaluated with upper endoscopy or an upper GI series, if clinically indicated. 5. There is cholelithiasis. 6. There is mild diverticulosis, without acute diverticulitis. 7. There is no abdominopelvic mass, free fluid or lymphadenopathy. 8. There are abdominal wall hernia defects, as detailed. 9. There are degenerative changes of the spine and right hip. No aggressive osseous lesion is seen. Independent Historian Clinical information obtained from an independent historian. History obtained from or confirmed by: Spouse Critical Care Time Critical Care Time Critical Care Time: Yes Total Critical Care Time: 75 Attestation: I have personally provided critical care time. Time includes review of lab data, radiology results, discussion with consultants, and monitoring for potential decompensation. Intervention performed as documented. Discharge Plan Discharge Clinical Impression: GI bleed, Anemia, Abnormal weight loss Patient Disposition: Still a Patient Instructions: Rectal Bleeding (ED), Anemia (ED) Additional Instructions: It is extremely important that you follow-up with your primary care physician in the next couple of days. You will need an endoscopy and possibly a colonoscopy. If you have any worsening or new symptoms, please return to the emergency room or call 911 Prescriptions: New ferrous gluconate 240 mg (27 mg iron) tablet 240 mg PO BID Qty: 90 0RF polyethylene glycol 3350 [Miralax] 17 gram/dose powder 17 g PO DAILY PRN (Reason: constipation) Qty: 119 0RF No Action Flovent Diskus 250 mcg/actuation blister with device 1 inh inhalation BID fexofenadine [Cait Allergy] 180 mg tablet 180 mg PO DAILY Referrals: Piyush Torres MD [Primary Care Provider] - 10/14/24 Sergei Ibarra MD [Physician] - 10/17/24 Print Language: Italian
[2024-10-12 14:52] LABS: MANUAL DIFF FLAG NO
[2024-10-12 14:54] LABS: Basophils Absolute Auto 0.1 X10*3/uL (0.0-0.2); Basophils Percent Auto 1.8 % (0-2); Eosinophils Absolute Auto 0.5 X10*3/uL (0.0-0.4); Hematocrit 23.9 % (37.0-47.0); Imm Gran Abs Auto 0.01 X10*3/uL (0.00-0.03); Imm Gran Pct Auto 0.2 % (0.0-0.4); Lymphocytes Absolute Auto 1.4 X10*3/uL (1.2-4.9); Lymphocytes Percent Auto 24.9 % (20-40); Mean Corpuscular HGB Conc 24.7 g/dl (31.0-35.0); Mean Corpuscular Hemoglobin 14.9 pg (27.0-33.0); Mean Corpuscular Volume 60.4 fL (80.0-98.0); Mean Platelet Volume 9.5 fL (9.4-12.3); Monocytes Absolute Auto 0.5 X10*3/uL (0.1-1.2); Monocytes Percent Auto 8.2 % (2-11); Neutrophils Absolute Auto 3.1 x10*3/uL (2.0-8.3); Neutrophils Percent Auto 55.9 % (45-73); Platelet Count 274 X10*3/uL (160-400); Red Blood Count 3.96 X10*6/uL (4.20-5.50); Red Cell Distribution Width 21.6 % (11.0-16.0); White Blood Count 5.6 X10*3/uL (4.8-10.8)
[2024-10-12 14:55] LABS: Hemoglobin 5.9 g/dl (12.0-16.0)
[2024-10-12 14:56] LABS: Appearance Urine Clear; Color Urine Yellow; Glucose Urine UA Negative (Negative); Leukocyte Esterase Urine Moderate (2+) (Negative); Nitrite Urine Negative (Negative); PH 5.5 (5.0-9.0); Specific Gravity - Urine 1.025 (1.005-1.025); UMIC TRIGGER UACC YES; Urine Blood Negative (Negative); Urine Ketones Negative (Negative); Urine Protein Negative (Neg-Trace)
[2024-10-12 14:57] LABS: Prothrombin Time 11.9 SEC (10.9-12.4)
[2024-10-12 14:59] LABS: OBS Int Ctl Valid YES; OBS1 POSITIVE (NEGATIVE)
[2024-10-12 15:00] LABS: Partial Thromboplastin Time 25.2 SEC (26.0-36.8)
[2024-10-12 15:16] LABS: Alanine Aminotransferase 16 U/L (0-31); Albumin Level 3.9 g/dL (3.5-5.0); Alkaline Phosphatase 80 U/L (39-117); Anion Gap 15 (12-20); Aspartate Amino Transferase 25 U/L (5-31); Bilirubin Direct 0.2 mg/dL (0.0-0.5); Bilirubin Total 0.6 mg/dL (0.0-1.0); Blood Urea Nitrogen 15 mg/dL (9-16); Calcium 8.7 mg/dL (8.4-10.2); Carbon Dioxide 23 mmol/L (22-29); Chloride 108 mmol/L (96-108); Creatinine Clr Calc Pharmacy 85.9; Estimated Glomerular Filt Rate > 60; Glucose Random 108 mg/dL (60-115); Iron 19 mcg/dL (30-160); Lipase 17 U/L (8-78); Magnesium 2.1 mg/dL (1.6-2.6); Percent Iron Saturation 4 % (15-50); Potassium 3.6 mmol/L (3.3-5.1); Sodium 142 mmol/L (135-145); Total Iron Binding Capacity 505 mcg/dL (228-428); Total Protein 6.6 g/dL (6.5-8.0); Unsaturated Iron Binding 486 ug/dL
[2024-10-12] MEDS: iohexoL 350 MG/ML 100 ML INFUS..BTL IV (15:45)
[2024-10-12 16:01] LABS: RBC Urine 0-2 /HPF (0-2); UACC Culture Trigger YES
[2024-10-12 16:04] LABS: Bacteria Urine None Seen (None Seen); Hyaline Casts Urine >20 /LPF (0-2)
--- NOTE | 2024-10-12 19:03 | PC.NURSE ---
this rn assumed care of pt, pt a&ox4, respirations even and unlabored. pt noted to have blood transfusion at this time, pt tolerating well, no acute distress noted. vss.
--- NOTE | 2024-10-12 19:33 | PC.NURSE ---
initial 15 minutes of second blood transfusion began at this time, vss, pt tolerating well, lung sounds clear bilaterally.
--- NOTE | 2024-10-12 19:49 | PC.NURSE ---
15 minutes completed, pt tolerating well, lung sounds clear bilaterally. no acute distress noted.
--- NOTE | 2024-10-12 20:37 | MHC.EDTECH ---
This tech took over care of pt at 1900,rounded and introduced self to pt,RN at bedside and took vitals ,pt appears comfortable,family at bedside,call johnson in reach
--- NOTE | 2024-10-12 22:08 | PC.NURSE ---
pt family member given recliner at this time.
--- NOTE | 2024-10-12 23:12 | PC.NURSE ---
15 minutes of 3 unit of blood complete at this time, pt tolerated well, no acute distress noted.
[2024-10-13 00:16] VITALS: BP 131/77; PULSE 73; RESP 15; TEMP 36.9; O2SAT 98
--- NOTE | 2024-10-13 00:21 | MHC.EDTECH ---
Rounds and vitals completed,patient is resting quietly,call johnson in reach
[2024-10-13 01:14] VITALS: BP 145/81; PULSE 75; RESP 17; TEMP 36.8
--- NOTE | 2024-10-13 01:14 | PC.NURSE ---
pt third transfusion complete at this time, provider aware.
[2024-10-13 01:35] VITALS: BP 145/81; PULSE 75; RESP 17; TEMP 36.8
== END 2024-10-13 01:35 | disposition home or self-care (01) ==
PROVIDERS: Emergency Medicine; Physician Assistant; Emergency Provider Internal Medicine; PCP Family Medicine
DX: K92.2 Gastrointestinal hemorrhage, unspecified (principal); D50.9 Iron deficiency anemia, unspecified; R63.4 Abnormal weight loss; Z68.34 Body mass index [BMI] 34.0-34.9, adult
CPT/HCPCS: 36415; 36430; 71260; 74177; 80048; 80076; 81001; 81003; 82272; 83540; 83690; 83735; 85025; 85610; 85730; 86850; 86900; 86901; 86923; 87086; 87147; 99284; 99285; P9016; Q9967

== ENCOUNTER 2024-11-01 07:57 | Outpatient (REF) | payer OTHER, SELFPAY ==
[2024-11-02 11:15] LABS: HPV 16,18/45 See PAP report
== END 2024-11-01 07:58 | disposition home or self-care (01) ==
LOC: HO.LNP 07:57
PROVIDERS: PCP Family Medicine; Visit Provider Advanced Practice Midwife
DX: Z01.419 Encounter for gynecological examination (general) (routine) without abnormal findings (principal)
CPT/HCPCS: 87624; 88175

== ENCOUNTER 2024-11-01 07:57 | Outpatient (AMB) | payer OTHER, SELFPAY ==
--- OUTSIDE RECORDS SUMMARY | 2024-11-01 07:59 | XMS_ITS ---
Author Organization [facility] Address [address] [place] [address] Care Team Providers Care Inside Sales Director Name Role Phone Piyush Torres MD Primary Care Provider Unavailab bethany Pierce Jr, Christo Toledo REASON FOR VISIT appointment Encounters Encounter Location Date Provider Diagnosis [facility] [address] [facility] [address] [place] [phone] 10/17/2024 Christo Pierce Jr PLAN OF TREATMENT Next Appt Details Provider Name:Christo barrett Jr, 11/18/2024 07:30:00 AM, [address] [place] [address] , [place], [place], [phone],
--- OUTSIDE RECORDS SUMMARY | 2024-11-01 07:59 | XMS_ITS | Patient Health Record ---
Author Organization [facility] Address [address] [place] [address] Care Team Providers Care Project Internship Name Role Phone Brian RODRIGUEZ, Piyush Primary Care Provider Unavailab Christo Damian Jr Unavailable ALLERGIES Allergen (clinical drug ingredient) Drug/Non Drug Allergy documented on EMR Reaction Allergy Type Onset Date Status Soy Isoflavones sensitivity Drug Allergy Active REASON FOR REFERRAL Referring Provider First Name Piyush Referring Provider Last Name Brian Referring Provider Speciality Internal M edicine Referred Organization [facility] Referred Provider Christo Pierce Jr Referred Address [address],[place], [place],[address], Referred Provider Specialty Gastroentero logy General Notes Meliza Pak 024 03:43:00 PM EST > call Dr. Torres's office at [phone] [facility] Dr. Pierce on [...] ORIGINAL REF[facility]AL [facility] Referral Priority Routine MEDICATIONS Medication SIG (Take, [...] Problem Colon cancer screening (Z12.11) Active confirmed 638786632 Problem Encounter for other preprocedural examination (Z01.818) Active confirmed 09161382 Problem Iron deficiency anemia, unspecified iron deficiency anemia type (D50.9) Active confirmed 58058326 Problem Heme positive stool (R19.5) Active confirmed 56551646 Problem Abnormal CT scan, gastrointestinal tract (R93.3) Active confirmed 674747908 VITAL SIGNS Blood pressure diastolic 00 mm Hg 10/26/2024 Height 62 in 10/26/2024 Blood pressure systolic 00 mm Hg 10/26/2024 Weight 182 lbs 10/26/2024 BMI 33.28 kg/m2 10/26/2024 Encounters Encounter Location Date Provider Diagnosis [facility] [address] [place] [address] 10/26/2024 Christo Pierce Jr Iron deficiency anemia, unspecified iron deficiency anemia type D50.9 ; Heme positive stool R19.[address] scan, gastrointestinal tract R93.3 [facility] [address] [place] [address] 10/17/2024 Christo Pierce Jr ASSESSMENTS Encounter Date [...] Provider Name:Christo barrett Jr, 11/18/2024 07:30:00 AM, [address] [place] [address] , [place], [place], [phone], Insurance Providers Payer Name Payer Address Payer Phone Subscriber Number Group Number Insured Name Patient Relationship to Insured Coverage Start Date Coverage End Date [employer] [address] [place] [phone] [id number] DAXA CORDON Self - patient is the insured MEDICAL (GENERAL) HISTORY Medical History History ICD Code Asthma Gastroesophageal reflux disease/hiatal h ernia Seasonal allergic rhinitis Colonoscopy 03/04, normal, ten-year follo wup Surgical History Surgery Date(Month/Year) Left foot fracture, surgical repair 1995 dislocated hip 1986
--- OUTSIDE RECORDS SUMMARY | 2024-11-01 07:59 | XMS_ITS ---
Author Organization [facility] Address [address] [place] [address] Care Team Providers Care Taxation Inspector Name Role Phone Piyush Torres MD Primary Care Provider UnavailChristo Machado Jr Unavailable [phone] ALLERGIES Allergen (clinical drug ingredient) Drug/Non Drug [...] iron deficiency anemia type (D50.9) Active confirmed 18547413 Problem Heme positive stool (R19.5) Active confirmed 01919204 Problem Abnormal CT scan, gastrointestinal tract (R93.3) Active confirmed 721674188 VITAL SIGNS BMI 33.28 kg/m2 10/26/2024 Blood pressure systolic 00 mm Hg 10/26/20 24 Blood pressure diastolic 00 mm Hg 024 Height 62 in 10/26/2024 Weight 182 lbs 10/26/2024 Encounters Encounter Location Date Provider Diagnosis [facility] [address] [place] [address] 10/26/2024 Christo Pierce Jr Iron deficiency anemia, [...] ENDOSCOPY 10/26/2024 COLONOSCOPY 10/26/2024 Next Appt Details Follow Up: 1 Year, Reason: Provider Name:Christo barrett Jr, 11/18/2024 07:30:00 AM, [address] [place] [address] , [place], [place], [phone], Progress Notes * Examination Category Sub-Category Detail Notes General Examination GENERAL APPEARANCE: in no ac lillie distress HEAD: normocephalic EYES: sclera non-icteric NECK/THYROID: no lymphadenopathy HEART: S1, S2 normal, no mu rmurs CHEST: normal shape and exp ansion LUNGS: clear to auscultatio n bilaterally ABDOMEN: soft, nontender, non distended, bowel sounds present, no organomegaly SKIN: anicteric EXTREMITIES: no clubbing, cyanosi s, or edema PSYCH: cognitive function i ntact ORAL CAVITY: mucosa moist
--- NOTE | 2024-11-01 08:05 | MHC.OFFVIS ---
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 She is doing well with no tire specialist concerns. Has a follow up with Dr. Ibarra for her GI concerns. Currently sexually active. Denies any irritation. Uses a lubricant as needed for dryness. STI testing offered; she declined. Attempting to eat a healthy diet with calcium and vitamin D and stays active with exercise-yoga 3 times a week. Last pap smear; 2018. Last mammogram; 2023. Colonoscopy is UTD. Denies any family history of ovarian or colon cancer. FH breast cancer. PFSH Medical History Gallstones Allergies Surgical History Hx of foot surgery Family History Paternal Aunt Breast cancer Maternal Aunt Lung cancer Social History Alcohol intake: current Alcohol intake frequency: a few times a month Patient Tobacco Use Status: Never used Tobacco Current occupational status: employed Current occupation: [employer] Sexual orientation: Straight/Heterosexual Gender identity: Female Female Reproductive History Menstrual Menopause type: natural Total pregnancies: 3 Full term: 2 Number of Living Children: 2 Ab spontaneous: 1 Date of last pap smear: 01/25/19 (neg pap and hpv) History of abnormal pap smear: Yes (08/31 ascus) Date of Mammogram: 08/09/24 (Birad 1) Review of Systems Const All systems reviewed & are unremarkable except as noted in HPI and below Reports as per HPI Eyes Reports no additional complaints ENT Reports no additional complaints Card Reports no additional complaints Resp Reports no additional complaints GI Reports as per HPI and Reports no additional complaints Reports as per HPI Musc Reports no additional complaints Skin/Breast Reports as per HPI Neuro Reports no additional complaints Psych Reports no additional complaints Endo Reports no additional complaints Atif/Lymph Reports no additional complaints Aller/Immun Reports no additional complaints Physical Exam Vital Signs: Last Vital Signs BP 122/76 11/01/24 08:06 BMI result Body Mass Index 33.7 Const General: cooperative, healthy appearing, no acute distress, well developed and alert Orientation/consciousness: patient oriented x3 HEENT Head: Yes normal to inspection Eyes General: appearance normal, both eyes and all related structures Neck Neck: Yes normal visual inspection Thyroid: Thyroid normal Chest Chest palpation & inspection: normal inspection of the chest and other (no puckering, dimpling, peau de orange, retraction, discharge, masses) Breast/axilla inspection: normal inspection of the breasts Breast/axilla palpation: normal palpation of the breasts Resp Effort & Inspection: normal respiratory effort GI Inspection: Yes normal to inspection Palpation (GI): Soft to palpation Rectal Exam - Female: deferred General: Yes bladder normal to palpation External Female Exam: normal external appearance and normal appearance of the urethra Speculum Exam - Vagina: normal appearance of the vagina, normal palpation, normal vaginal discharge and vagina atrophic Speculum Exam - Cervix: normal appearance of the cervix, normal palpation and Other cervical findings present (Atrophic changes bled very slightly with Pap) Bimanual exam- vagina & uterus: normal bimanual exam, normal palpation, uterine size normal, bladder normal to palpation, normal palpation and non-tender Bimanual Exam- Adnexa, other: no masses Skin General skin exam: no rashes or lesions noted Rashes: no rashes Neuro General: patient oriented x3 Cognition (Neuro): normal cognition Extrem General: Yes normal to inspection Psych Attitude: cooperative Thought process: Normal thought process present Assessment & Plan Assessment & Plan (1) Encounter for annual routine gynecological examination: Code(s): Z01.419 - Encounter for gynecological examination (general) (routine) without abnormal findings Category: Medical Plan Discussed: Current recommendations for pap smears per ASCCP guidelines. Breast awareness, periodic self breast exams and yearly mammogram. Maintain a healthy lifestyle, well balanced diet including Calcium 1,200 mg and Vitamin D 600 IU daily, and routine exercise-handout given. Contact the office with any postmenopausal bleeding. Patient verbalizes understanding and agrees to the plan of care. She was given opportunity to ask questions and all questions were answered to the best of my ability. RTO in 1 year for annual tire specialist exam. This note is constructed using voice recognition software. While every effort has been made to ensure accuracy, gripper installer errors may have been included. Coding Level of Care Code Est Pt Prev Care 40-64y(07284) Diagnoses Encounter for annual routine gynecological examination Z01.419
[2024-11-01 08:06] VITALS: BP 122/76; BMI 33.7
== END 2024-11-01 08:35 | disposition home or self-care (01) ==
PROVIDERS: PCP Family Medicine; Visit Provider Advanced Practice Midwife
DX: Z01.419 Encounter for gynecological examination (general) (routine) without abnormal findings (principal)
CPT/HCPCS: 99396; 99459

== ENCOUNTER 2024-11-18 06:19 | Day surgery (SDC) | payer OTHER, SELFPAY ==
--- OUTSIDE RECORDS SUMMARY | 2024-10-27 01:54 | XMS_ITS ---
Author Organization [facility] Address [address] [place] [address] Care Team Providers Care Implementation Lead Name Role Phone Piyush Torres MD Primary Care Provider UnavailChristo Machado Jr Unavailable ALLERGIES Allergen (clinical drug ingredient) Drug/Non Drug Allergy documented on EMR Reaction Allergy Type Onset Date Status Soy Isoflavones sensitivity Drug Allergy Active REASON FOR VISIT Patient presents today for a gi bleed MEDICATIONS Medication SIG (Take, Route, Frequency, Duration) Notes Start Date End Date Status Loratadine Active Tums Active Magnesium Active Pulmicort Flexhaler 180 MCG/ACT Inhalation for 90 Active Albuterol Sulfate HFA 108 (90 Base) MCG/ACT Inhalation for 90 A ctive iron once a day Active Famotidine Active MiraLax (colon prep) 17 GM/SCOOP mixed with Gatorade or Crystal Light Orally begin at 5:00 p.m. the day before the procedure for 1 day 10/26/2024 Active SOCIAL HISTORY Tobacco Use: Social History Observation Description Date Details (start date - stop date) Never Smoker NA - NA Sex Assigned At : Social History Observation Description Sex Assigned At Unknown Tobacco Use/Smoking Question Answer Notes Patient is a nonsmoker Alcohol Screen Question Answer Notes Did you have a drink contain ing alcohol in the past year? Yes How often did you have a dri nk containing alcohol in the past year? 2 to 4 times a month (2 points) How many drinks did you have on a typical day when you were drinking in the past year? 3 or 4 drinks (1 point) How often did you have 6 or more drinks on one occasion in the past year? Never (0 point) Points 3 Interpretation Positive PROBLEMS Problem Type ICD Code Onset Dates Problem Status W/U Status Risk SNOMED Code Notes Problem Iron deficiency anemia, unspecified iron deficiency anemia type (D50.9) Active confirmed 36208397 Problem Heme positive stool (R19.5) Active confirmed 13274721 Problem Abnormal CT scan, gastrointestinal tract (R93.3) Active confirmed 402061776 VITAL SIGNS BMI 33.28 kg/m2 10/26/2024 Blood pressure systolic 00 mm Hg 10/26/20 24 Blood pressure diastolic 00 mm Hg 024 Height 62 in 10/26/2024 Weight 182 lbs 10/26/2024 Encounters Encounter Location Date Provider Diagnosis [facility] [address] [place] [address] 10/26/2024 Christo Pierce Jr Iron deficiency anemia, unspecified iron deficiency anemia type D50.9 ; Heme positive stool R19.[address] scan, gastrointestinal tract R93.3 ASSESSMENTS Encounter Date Diagnosis Assessment Notes Treatment Notes Treatment Clinical Notes 10/26/2024 Iron deficiency anemia, unspecified iron deficiency anemia type (ICD-10 - D50.9) Colonoscopy material was printed 10/26/2024 Heme positive stool (ICD-10 - R19.5) 10/26/[address] scan, gastrointestinal tract (ICD-10 - R93.3) PLAN OF TREATMENT Medication Medication Name Sig Start Date Stop Date Notes MiraLax (colon prep) 17 GM/SCOOP mixed with Gatorade or Crystal Light Orally begin at 5:00 p.m. the day before the procedure for 1 day 10/26/2024 Treatment Notes Assessment Notes Iron deficiency anemia, unsp ecified iron deficiency anemia type Colonoscopy material was printed Future Test Test Name Order Date UPPER GI ENDOSCOPY 10/26/2024 COLONOSCOPY 10/26/2024 Next Appt Details Provider Name:Christo barrett Jr, 11/18/2024 07:30:00 AM, [address] [place] [address] , [place], [place], [phone],
--- OUTSIDE RECORDS SUMMARY | 2024-10-27 01:54 | XMS_ITS ---
Author Organization [facility] Address [address] [place] [address] Care Team Providers Care Safety Professional Name Role Phone Piyush Torres MD Primary Care Provider Unavailab bethany Pierce Jr, Christo Toledo REASON FOR VISIT appointment Encounters Encounter Location Date Provider Diagnosis [facility] [address] [place] [phone] 10/17/2024 Christo Pierce Jr PLAN OF TREATMENT Next Appt Details Provider Name:Christo barrett Jr, 11/18/2024 07:30:00 AM, [address] [place] [address] , [place], [place], [phone],
--- OUTSIDE RECORDS SUMMARY | 2024-10-27 01:54 | XMS_ITS | Patient Health Record ---
Author Organization [facility] Address [address] [place] [address] Care Team Providers Care Therapy Tech Name Role Phone Brian RODRIGUEZ, Piyush Primary Care Provider Unavailab Christo Damian Jr Unavailable [phone] ALLERGIES Allergen (clinical drug ingredient) Drug/Non Drug Allergy documented on EMR Reaction Allergy Type Onset Date Status Soy Isoflavones sensitivity Drug Allergy Active REASON FOR REFERRAL Referring Provider First Name Piyush Referring Provider Last Name Brian Referring Provider Speciality Internal M edicine Referred Organization [facility] Referred Provider Christo Pierce Jr Referred Address [address],[place], [place],[address], Referred Provider Specialty Gastroentero logy General Notes Meliza Pak 024 03:43:00 PM EST > call Dr. Torres's office at [phone] [facility] Dr[facility] Pierce on 10-26-2024, Meliza Pak 10/24/2024 10:21:04 AM EST > spoke with Nissa at Dr. Torres's ....she is working on this. Had trouble with the website and will fax me the authorization number, Meliza Pak 10/25/2024 12:03:44 PM EST > VERBAL AUTHORIZATION GIVEN TO ME BY NISSA AT DR BRINK. SHE WILL FAX THE ORIGINAL REFERRAL [facility] Referral Priority Routine MEDICATIONS Medication SIG (Take, Route, Frequency, Duration) Notes Start Date End Date Status iron once a day Active Loratadine Active Famotidine Active MiraLax (colon prep) 17 GM/SCOOP mixed with Gatorade or Crystal Light Orally begin at 5:00 p.m. the day before the procedure for 1 day 10/26/2024 Active Tums Active Magnesium Active Pulmicort Flexhaler 180 MCG/ACT Inhalation for 90 Active Albuterol Sulfate HFA 108 (90 Base) MCG/ACT Inhalation for 90 A ctive IMMUNIZATIONS Vaccine Route Administration Date Status Comme nts Influenza Unknown 12/02/2018 Refused SOCIAL HISTORY Tobacco Use: Social History Observation [...] W/U Status Risk SNOMED Code Notes Problem Colon cancer screening (Z12.11) Active confirmed 723600334 Problem Encounter for other preprocedural examination (Z01.818) Active confirmed 01562279 Problem Iron deficiency anemia, unspecified iron deficiency anemia type (D50.9) Active confirmed 56085359 Problem Heme positive stool (R19.5) Active confirmed 25156985 Problem Abnormal CT scan, gastrointestinal tract (R93.3) Active confirmed 358532258 VITAL SIGNS Blood pressure diastolic 00 mm Hg 10/26/2024 Height 62 in 10/26/2024 Blood pressure systolic 00 mm Hg 10/26/2024 Weight 182 lbs 10/26/2024 BMI 33.28 kg/m2 10/26/2024 Encounters Encounter Location Date Provider Diagnosis [facility] [address] [place] [address] 10/26/2024 Christo Pierce Jr Iron deficiency anemia, unspecified iron deficiency anemia type D50.9 ; Heme positive stool R19.[address] scan, gastrointestinal tract R93.3 [facility] [address] [place] [address] 10/17/2024 Christo Pierce Jr ASSESSMENTS Encounter Date Diagnosis Assessment Notes Treatment Notes Treatment Clinical Notes 10/26/2024 Heme positive stool (ICD-10 - R19.5) 10/26/2024 Iron deficiency anemia, unspecified iron deficiency anemia type (ICD-10 - D50.9) Colonoscopy material was printed 10/26/[address] scan, gastrointestinal tract (ICD-10 - R93.3) PLAN OF TREATMENT Future Test Test Name Order Date COLONOSCOPY 12/02/2018 UPPER GI ENDOSCOPY 10/26/2024 COLONOSCOPY 10/26/2024 Next Appt Details Provider Name:Christo barrett Jr, 11/18/2024 07:30:00 AM, [address] [place] [address] , [place], [place], [phone], Insurance Providers Payer Name Payer Address Payer Phone Subscriber Number Group Number Insured Name Patient Relationship to Insured Coverage Start Date Coverage End Date [employer] [address] [place] [phone] [id number] DAXA CORDON Self - patient is the insured MEDICAL (GENERAL) HISTORY Medical History History ICD Code reactive airway disease Hiatal hernia hx of bronchial spasm Surgical History Surgery Date(Month/Year) plate and 4 screws in left foot, shatter ed little toe bone 1995 dislocated hip 1986
[2024-11-15 13:52] VITALS: BMI 33.3
--- OUTSIDE RECORDS SUMMARY | 2024-11-18 06:22 | XMS_ITS ---
Author Organization [facility] Address [address] [place] [address] Care Team Providers Care Whip Sawyer Name Role Phone Piyush Torres MD Primary Care Provider UnavailChristo Machado Jr Unavailable [phone] ALLERGIES Allergen (clinical drug ingredient) Drug/Non Drug [...] iron deficiency anemia type (D50.9) Active confirmed 00500492 Problem Heme positive stool (R19.5) Active confirmed 38979946 Problem Abnormal CT scan, gastrointestinal tract (R93.3) Active confirmed 308884812 VITAL SIGNS BMI 33.28 kg/m2 10/26/2024 Blood pressure systolic 00 mm Hg 10/26/20 24 Blood pressure diastolic 00 mm Hg 024 Height 62 in 10/26/2024 Weight 182 lbs 10/26/2024 Encounters Encounter Location Date Provider Diagnosis [facility] [address] [place] [address] 10/26/2024 Christo Pierce Jr Iron deficiency anemia, [...] Provider Name:Christo barrett Jr, 11/18/2024 07:30:00 AM, [address] [place] [address] , [place], [place], [phone], Progress Notes * Examination Category Sub-Category Detail [...]
--- OUTSIDE RECORDS SUMMARY | 2024-11-18 06:22 | XMS_ITS ---
Author Organization [facility] Address [address] [place] [address] Care Team Providers Care Fabric Normalizer Name Role Phone Piyush Torres MD Primary Care Provider Unavailab bethany Pierce Jr, Christo [place] [phone] REASON FOR VISIT appointment Encounters Encounter Location Date Provider Diagnosis [facility] [address] [place] [phone] 10/17/2024 Christo Pierce Jr PLAN OF TREATMENT Next Appt Details Provider Name:Christo barrett Jr, 11/18/2024 07:30:00 AM, [address] [place] [address] , [place], [place], [phone],
--- OUTSIDE RECORDS SUMMARY | 2024-11-18 06:22 | XMS_ITS | Patient Health Record ---
Author Organization [facility] Address [address] [place] [address] Care Team Providers Care Daily Sales Audit Clerk Name Role Phone Brian RODRIGUEZ, Piyush Primary Care Provider Unavailab Christo Damian Jr Unavailable [phone] ALLERGIES Allergen (clinical drug ingredient) Drug/Non Drug Allergy documented on EMR Reaction Allergy Type Onset Date Status Soy Isoflavones sensitivity Drug Allergy Active REASON FOR REFERRAL Referring Provider First Name Piyush Referring Provider Last Name Brian Referring Provider Speciality Internal M edicine Referred Organization [facility] Referred Provider Christo Pierce Jr Referred Address [address],[place], [place],[address], Referred Provider Specialty Gastroentero logy General Notes Meliza Pak 024 03:43:00 PM EST > call Dr. Torres's office at [phone] [facility] Dr. Pierce [...] ORIGINAL RE[facility] Referral Priority Routine MEDICATIONS Medication SIG (Take, [...] Problem Colon cancer screening (Z12.11) Active confirmed 885189530 Problem Encounter for other preprocedural examination (Z01.818) Active confirmed 83787457 Problem Iron deficiency anemia, unspecified iron deficiency anemia type (D50.9) Active confirmed 94600654 Problem Heme positive stool (R19.5) Active confirmed 15631156 Problem Abnormal CT scan, gastrointestinal tract (R93.3) Active confirmed 002082713 VITAL SIGNS Blood pressure diastolic 00 mm Hg 10/26/2024 Height 62 in 10/26/2024 Blood pressure systolic 00 mm Hg 10/26/2024 Weight 182 lbs 10/26/2024 BMI 33.28 kg/m2 10/26/2024 Encounters Encounter Location Date Provider Diagnosis [facility] [place] [address] [place] [phone] 11/18/2024 Christo Pierce Jr [facility] [address] [facility] [address] [place] [phone] 10/26/2024 Christo Pierce Jr Iron deficiency anemia, unspecified iron deficiency anemia type D50.9 ; Heme positive stool R19.[address] scan, gastrointestinal tract R93.3 [facility] [address] [place] [address] 10/17/2024 Christo Pierce Jr ASSESSMENTS Encounter Date [...] Provider Name:Christo barrett Jr, 11/18/2024 07:30:00 AM, [address] [place] [address] , [place], [place], [phone], Insurance Providers Payer Name Payer Address Payer Phone Subscriber Number Group Number Insured Name Patient Relationship to Insured Coverage Start Date Coverage End Date [employer] [address] [place] [phone] [id number] DAXA CORDON Self - patient is the insured MEDICAL (GENERAL) HISTORY Medical History History ICD Code Asthma Gastroesophageal reflux disease/hiatal h ernia Seasonal allergic rhinitis Colonoscopy 03/04, normal, ten-year follo wup Surgical History Surgery Date(Month/Year) Left foot fracture, surgical repair 1995 dislocated hip 1986
--- OUTSIDE RECORDS SUMMARY | 2024-11-18 06:22 | XMS_ITS ---
Author Organization [facility] Address [address] [place] [address] Care Team Providers Care Chicken Hatchery Helper Name Role Phone Piyush Torres MD Primary Care Provider Unavailab bethany Pierce Jr, Christo Unavailable REASON FOR VISIT fe def anemia, Heme positive stools, abn ct scan gi tract Encounters Encounter Location Date Provider [place] [facility] [address] [place] [phone] 11/18/2024 Christo Pierce Jr PLAN OF TREATMENT Next Appt Details Provider Name:Christo barrett Jr, 11/18/2024 07:30:00 AM, [address] [place] [address], [phone],
[2024-11-18 06:42] VITALS: BMI 32.6
[2024-11-18] MEDS: Lactated Ringers 1,000 ML 100 ML IVCONT (06:45)
[2024-11-18 06:49] VITALS: BP 148/90; PULSE 70; RESP 18; TEMP 36.8; O2SAT 96
[2024-11-18 07:09] LABS: Hematocrit 42.9 % (37.0-47.0); Hemoglobin 12.6 g/dl (12.0-16.0); Mean Corpuscular HGB Conc 29.4 g/dl (31.0-35.0); Mean Corpuscular Hemoglobin 22.4 pg (27.0-33.0); Mean Corpuscular Volume 76.3 fL (80.0-98.0); Platelet Count 177 X10*3/uL (160-400); Red Blood Count 5.62 X10*6/uL (4.20-5.50); White Blood Count 4.1 X10*3/uL (4.8-10.8)
--- NOTE | 2024-11-18 07:12 | MHC.SHP ---
Pre-Procedural Eval Section A - 24 Hr Update-Section A only Date of Service: 11/18/24 The patient is an INPATIENT: No Changes since office visit: No Cold of Flu in the past 2 weeks, No New Medical Problems, No Changes in Medication and No Patient answered all questions The patient has been examined within 24 hours of the surgical procedure. The History & Physical has been completed within 30 days and I have reviewed it.: Yes Section B - Complete if H&P > 30 days Chief Complaint: Other fecal abnormalities Allergies: Allergies Allergy/AdvReac Type Severity Reaction Status Date / Time No Known Allergies Allergy Verified 11/18/24 06:43 Plan I have reviewed the history and physical and performed a pertinent physical examination on my patient. No changes have occurred unless specified. Time Spent With Patient Time: Total time managing care of this patient today ____ minutes.
--- NOTE | 2024-11-18 07:30 | HO.ANESPROP2 ---
Documented by User: Hiwot Johnson NP 11/17/24 09:22 HPI - Anesthesia Eval Consult details Narrative: 59yo F for Upper Endoscopy and Colonoscopy H&H signif low with routine labs 09/2024 - sent to ER by PCP, transfused PRBC x 3 PMFSH Active Problems Active Problems: All Active Problems Encounter for annual routine gynecological examination (Acute) Past Medical History Medical History Hiatal hernia GERD (gastroesophageal reflux disease) Asthma Gallstones Allergies Family History Family History Paternal Aunt Breast cancer Maternal Aunt Lung cancer Surgical History Surgical History History of hip surgery H/O colonoscopy Hx of foot surgery Social History Social History (Updated 11/15/24 @ 13:53 by Giulia Singh RN) Household Members: Spouse Are you a primary resident care manager rn to a significant other at home: No Do you presently have visiting nurse or other home services: No Alcohol intake: current Alcohol intake frequency: a few times a month Patient Tobacco Use Status: Never used Tobacco Have you been hit, kicked, punched, or otherwise hurt by someone within the past year? If so, by whom?: No Are you DNR?: No Advance Directives: No Advance Directives Information Provided: Yes Recently lost weight without trying: No Nutrition Risks: No Nutritional Risk Current occupational status: employed Current occupation: [employer] Sexual orientation: Straight/Heterosexual Gender identity: Female Meds Allergies Allergy/AdvReac Type Severity Reaction Status Date / Time No Known Allergies Allergy Verified 11/18/24 06:43 Home Medications ?Medication ?Instructions ?Recorded ?Confirmed ?Last Taken ?Type fluticasone propionate 250 1 inh inhalation BID 04/16/21 11/15/24 Unknown History mcg/actuation blister powder for inhalation (Flovent Diskus) famotidine 20 mg tablet 20 mg PO DAILY 11/01/24 11/15/24 11/18/24 History loratadine 10 mg tablet (Claritin) 10 mg PO DAILY 11/01/24 11/15/24 Unknown History albuterol sulfate 90 mcg/actuation 2 puff inhalation Q4H PRN 11/15/24 11/15/24 11/18/24 History aerosol inhaler Shortness Of Breath Or Wheezing Exam Height,Weight and Vital Signs: Height 5 ft 2 in Weight 82.554 kg Pertinent Lab Results Pertinent Lab Results: Laboratory Tests 10/12/24 14:45 Sodium 142 Potassium 3.6 Chloride 108 Carbon Dioxide 23 BUN 15 Creatinine 0.73 Assessment and Plan Assessment Anesthesia Assessment: Chart Reviewed Documented by User: Jailene Rea DO 11/18/24 07:40 [facility] Past Medical History Medical History Hiatal hernia GERD (gastroesophageal reflux disease) Asthma Gallstones Allergies Family History Family History Paternal Aunt Breast cancer Maternal Aunt Lung cancer Family history of problems with anesthesia: No Surgical History Surgical History History of hip surgery H/O colonoscopy Hx of foot surgery History of Problems with Anesthesia: No Social History Social History (Updated 11/15/24 @ 13:53 by Giulia Singh RN) Household Members: Spouse Are you a primary resident care manager rn to a significant other at home: No Do you presently have visiting nurse or other home services: No Alcohol intake: current Alcohol intake frequency: a few times a month Patient Tobacco Use Status: Never used Tobacco Have you been hit, kicked, punched, or otherwise hurt by someone within the past year? If so, by whom?: No Are you DNR?: No Advance Directives: No Advance Directives Information Provided: Yes Recently lost weight without trying: No Nutrition Risks: No Nutritional Risk Current occupational status: employed Current occupation: [employer] Sexual orientation: Straight/Heterosexual Gender identity: Female Meds Allergies Allergy/AdvReac Type Severity Reaction Status Date / Time No Known Allergies Allergy Verified 11/18/24 06:43 Home Medications ?Medication ?Instructions ?Recorded ?Confirmed ?Last Taken ?Type fluticasone propionate 250 1 inh inhalation BID 04/16/21 11/15/24 Unknown History mcg/actuation blister powder for inhalation (Flovent Diskus) famotidine 20 mg tablet 20 mg PO DAILY 11/01/24 11/15/24 11/18/24 History loratadine 10 mg tablet (Claritin) 10 mg PO DAILY 11/01/24 11/15/24 Unknown History albuterol sulfate 90 mcg/actuation 2 puff inhalation Q4H PRN 11/15/24 11/15/24 11/18/24 History aerosol inhaler Shortness Of Breath Or Wheezing Exam Exam Date and Time: 11/18/24 0728 Height,Weight and Vital Signs: Height 5 ft 2 in Weight 82.554 kg Vital Signs Temperature 98.2 F 11/18/24 06:49 Pulse Rate 70 11/18/24 06:49 Respiratory Rate 18 11/18/24 06:49 Blood Pressure 148/90 H 11/18/24 06:49 Pulse Oximetry 96 11/18/24 06:49 Oxygen Delivery Method Room Air 11/18/24 06:49 Temperature 98.2 F 11/18/24 06:49 Pulse Rate 70 11/18/24 06:49 Respiratory Rate 18 11/18/24 06:49 Blood Pressure 148/90 H 11/18/24 06:49 Pulse Oximetry 96 11/18/24 06:49 Oxygen Delivery Method Room Air 11/18/24 06:49 Airway Mallampati Class: II TM Dist: >3cm Neck ROM: Full Loose/Missing/Broken Teeth: No (patient denies any loose or broken teeth) Heart: S1S2 Lungs: CTAB Assessment and Plan Assessment Anesthesia Assessment: Anesthesia Plan Discussed and Chart Reviewed Final Anesthetic Review Family History of Problems with Anesthesia: No History of Problems with Anesthesia: No NPO: Yes ASA Class: II Final Preanesthetic Review: No Changes in Pt Med Stat, Meds/Allgs Chart Reviewed, Consent Obtained/Reviewed and Anes Risks/Benef Reviewed Patient Risk: Low Procedure Risk: Low Anesthetic Plan Anesthetic Plan: MAC: and Agree w/ Assess. and Plan Disposition: Standard PACU
--- NOTE | 2024-11-18 07:32 | PC.NURSE ---
per Dr. Rea ok to proceed while waiting on lab results.
[2024-11-18 08:16] VITALS: BP 91/58; PULSE 78; RESP 20; TEMP 36.3; O2SAT 97
[2024-11-18 08:31] VITALS: BP 109/66; PULSE 66; RESP 20; O2SAT 99
--- NOTE | 2024-11-18 08:38 | OP_ITS ---
DATE OF SERVICE: 11/18/2024 SURGEON: Christo Pierce MD INDICATIONS: Iron-deficiency anemia, Hemoccult-positive stool, abnormal CT scan of the GI tract. PREOPERATIVE DIAGNOSIS: POSTOPERATIVE DIAGNOSIS: PROCEDURE PERFORMED: ESTIMATED BLOOD LOSS: COMPLICATIONS: ANESTHESIA: Monitored anesthesia care. ASSISTANTS: SPECIMENS: PROCEDURES PERFORMED: Upper endoscopy with biopsy, colonoscopy to the terminal ileum. DESCRIPTION OF PROCEDURE: A history and physical were performed. The risks and benefits of the procedure were explained to the patient. Informed consent was obtained. The patient was placed in the left lateral decubitus position. A digital rectal exam was performed and was found to be normal prior to the colonoscopy. The Olympus video gastroscope was introduced into the esophagus, stomach, and duodenum. Examination was performed, and the scope was removed. She was repositioned for colonoscopy. The Olympus pediatric video colonoscope was introduced into the rectum and advanced to the cecum. The cecum was identified by transillumination, palpation, and identification of ileocecal valve. Examination was performed and the scope was removed. She tolerated both procedures well and was taken to recovery area in stable condition. FINDINGS: Upper endoscopy: 1. Esophagus: There was erosive esophagitis present over the last 5 cm of the esophagus. Biopsies were obtained from the esophagus. 2. Stomach: There was a 5 cm hiatal hernia with the several Justus ulcerations at the hiatal hernia site. No active bleeding was identified. Biopsies were obtained from the antrum. 3. Duodenum, the bulb and 2nd portion were normal. Biopsies were obtained from the duodenum. Colonoscopy: The terminal ileum was examined and appeared normal. Visualized colonic mucosa was normal. The quality of the prep was excellent. There was mild sigmoid diverticulosis. Retroflexed examination showed some small internal hemorrhoids. IMPRESSION: 1. Erosive esophagitis. 2. Gastric ulcers. 3. Hiatal hernia. 4. Normal colonoscopy. RECOMMENDATION: 1. Follow up the biopsy results. 2. Repeat colonoscopy is recommended in 10 years for average-risk individuals. MD ALEKS Lazo/ROCHELLEL / [id number]
[2024-11-18 08:47] VITALS: BP 112/74; PULSE 60; RESP 16; TEMP 36.3; O2SAT 97
== END 2024-11-18 09:14 | disposition home or self-care (01) ==
PROVIDERS: Nurse Practitioner; PCP Family Medicine; Visit Provider Internal Medicine Gastroenterology
PROC: (CPT 45378; principal; 2024-11-18 07:30)
DX: K57.30 Diverticulosis of large intestine without perforation or abscess without bleeding (principal); K64.8 Other hemorrhoids; R19.5 Other fecal abnormalities; R93.3 Abnormal findings on diagnostic imaging of other parts of digestive tract; K20.80 Other esophagitis without bleeding; K25.9 Gastric ulcer, unspecified as acute or chronic, without hemorrhage or perforation; K44.9 Diaphragmatic hernia without obstruction or gangrene; D50.9 Iron deficiency anemia, unspecified
CPT/HCPCS: 45378; 43239; 36415; 85027; 88305; 88342; J2003; J2704

== ENCOUNTER 2025-03-07 16:14 | Outpatient (REF) | payer OTHER, SELFPAY ==
[2025-03-07 16:23] LABS: MANUAL DIFF FLAG NO
[2025-03-07 17:05] LABS: Basophils Absolute Auto 0.1 X10*3/uL (0.0-0.2); Basophils Percent Auto 1.2 % (0-2); Eosinophils Absolute Auto 0.4 X10*3/uL (0.0-0.4); Eosinophils Percent Auto 7.7 % (0-4); Hematocrit 43.4 % (37.0-47.0); Imm Gran Abs Auto 0.02 X10*3/uL (0.00-0.03); Imm Gran Pct Auto 0.4 % (0.0-0.4); Lymphocytes Absolute Auto 1.2 X10*3/uL (1.2-4.9); Lymphocytes Percent Auto 24.5 % (20-40); Mean Corpuscular HGB Conc 32.3 g/dl (31.0-35.0); Mean Corpuscular Hemoglobin 27.8 pg (27.0-33.0); Mean Corpuscular Volume 86.1 fL (80.0-98.0); Mean Platelet Volume 10.3 fL (9.4-12.3); Monocytes Absolute Auto 0.3 X10*3/uL (0.1-1.2); Monocytes Percent Auto 6.3 % (2-11); Neutrophils Percent Auto 59.9 % (45-73); Platelet Count 186 X10*3/uL (160-400); Red Blood Count 5.04 X10*6/uL (4.20-5.50); White Blood Count 4.9 X10*3/uL (4.8-10.8)
[2025-03-07 17:27] LABS: Iron 84 mcg/dL (30-160); Percent Iron Saturation 24 % (15-50); Total Iron Binding Capacity 343 mcg/dL (228-428); Unsaturated Iron Binding 259 ug/dL
--- OUTSIDE RECORDS SUMMARY | 2025-03-07 18:46 | XMS_ITS ---
Author Organization [facility] Address [address] [place] [address] Care Team Providers Care Electron Beam Welder Name Role Phone Piyush Torres MD Primary Care Provider Unavailab Christo Damian Jr REASON FOR VISIT fe def anemia, Heme positive stools, abn ct scan gi tract Problems Problem Type SNOMED Code ICD Code Onset Dates Problem Status W/U Status Risk Notes Problem Iron deficiency anemia (62563904) Iron deficiency anemia (D50.9) Active confirmed Problem Erosive esophagitis (52145875) Erosive esophagitis (K22.10) Active confirmed Problem Gastric ulcer (274642529) Gastric ulcer (K25.9) Active confirmed Encounters Encounter Location Date Provider Diagnosis [facility] [place] [address] [place] [phone] 11/18/2024 Christo Pierce Jr Heme + stool [...] Of Treatment Next Appt Details Provider Name:Christo Sow arnold Degroot, 03/22/2025 09:20:00 AM, [address], [address], [place], [address], Progress Notes * CHARLIE CORDONIDOB: 7 (60 yo F)Acc No.[id number]:11/18/2024 EGD and COL/MAC Patient:?DAXA CORDON Provider:?Christo Pierce MD :1965???Age:59 Y???Sex:Female D ate:11/18/2024 Address:[address] [place] [address] , [facility] Pcp:Piyush Torres MD Subjective: * Chief Complaints: * ???1. fe def anemia, Heme po sitive stools, abn ct scan gi tract. * Medical History:? Objective: * Vitals:? Assessment: * Assessment: 1.?Heme + stool - R19.5 (Maren reyna)???2.?Iron deficiency anemia - D50.9???3.?Abnormal abdominal CT scan - R93.5???4.?Erosive esophagitis - K22.10???5.?Gastric ulcer - K25.9??? Plan: * Treatment: * Procedure Codes:?20909 DIAGN OSTIC COLONOSCOPY, 0529F INTRVL 3+YRS PTS CLNSCP DOCD, 0528F RCMND FLW-UP 10 YRS DOCD, [address] UPPER GI ENDOSCOPY, BIOPSY * * The named appointment provid er may or may not be the originator of this progress note, and it is not deemed complete until electronically signed by the appointment provider. Sign off status: Pending * Provider:?Christo Pierce MD Date:?0 11/18/2024 Generated for Kya vaz/Alphonse/eTransmitting on:?03/07/2025 06:46 PM EDT
--- OUTSIDE RECORDS SUMMARY | 2025-03-07 18:46 | XMS_ITS ---
Author Organization [facility] Address [address] [place] [address] Care Team Providers Care Informix Developer Name Role Phone Piyush Torres MD Primary Care Provider UnavailChristo Machado Jr Unavailable Allergies Allergen (clinical drug ingredient) Drug/Non Drug Allergy documented on EMR Reaction Allergy Type Onset Date Status Soy Isoflavones sensitivity Drug Allergy Active REASON FOR VISIT Patient presents today for a gi bleed Medications Medication SIG (Take, Route, Frequency, Duration) Notes [...] the procedure for 1 day 10/26/2024 Active Social History Tobacco Use: Social History Observation Description Date Details (start date - stop date) Never Smoker NA - NA Tobacco Use/Smoking Question Answer Notes Patient is [...] Never (0 point) Points 3 Interpretation Positive Problems Problem Type SNOMED Code ICD Code Onset Dates Problem Status W/U Status Risk Notes Problem 35724178 Iron deficiency anemia, unspecified iron deficiency anemia type (D50.9) Active confirmed Problem 90361436 Heme positive st ool (R19.5) Active confirmed Problem 226848816 Abnormal CT scan , gastrointestinal tract (R93.3) Active confirmed Vital Signs Blood pressure systolic 00 mm Hg 10/26/20 24 Blood pressure diastolic 00 mm Hg 024 Height 62 in 10/26/2024 Weight 182 lbs 10/26/2024 BMI 33.28 kg/m2 10/26/2024 Encounters Encounter Location Date Provider Diagnosis [facility] [address] [place] [address] 10/26/2024 Christo Pierce Jr Iron deficiency anemia, unspecified iron deficiency anemia type D50.9 ; Heme positive stool R19.[address] scan, gastrointestinal tract R93.3 Assessments Encounter Date Diagnosis (ICD Code) Assessment Notes Treatment Notes Treatment Clinical Notes Section Notes 10/26/2024 Iron deficiency anemia, unspecified iron deficiency anemia type (ICD-10 - D50.9) Colonoscopy material was printed We discussed her anemia, CT scan, and stool occult blood findings today. She was remarkably asymptomatic from the severe anemia, suggesting this is chronic GI blood loss. This could be from the upper or lower GI tract based on her findings and have recommended upper endoscopy and colonoscopy for further evaluation. We discussed the wide differential diagnosis for this including upper and lower GI lesions, and other reasons for GI tract blood loss. This will be arranged at her convenience. She is aware of risks and benefits and agrees to proceed. She is advised stop iron one week before the procedure per 10/26/2024 Heme positive stool (ICD-10 - R19.5) We discussed her anemia, CT scan, and stool occult blood findings today. She was remarkably asymptomatic from the severe anemia, suggesting this is chronic GI blood loss. This could be from the upper or lower GI tract based on her findings and have recommended upper endoscopy and colonoscopy for further evaluation. We discussed the wide differential diagnosis for this including upper and lower GI lesions, and other reasons for GI tract blood loss. This will be arranged at her convenience. She is aware of risks and benefits and agrees to proceed. She is advised stop iron one week before the procedure per 10/26/[address] scan, gastrointestinal tract (ICD-10 - R93.3) We discussed her anemia, CT scan, and stool occult blood findings today. She was remarkably asymptomatic from the severe anemia, suggesting this is chronic GI blood loss. This could be from the upper or lower GI tract based on her findings and have recommended upper endoscopy and colonoscopy for further evaluation. We discussed the wide differential diagnosis for this including upper and lower GI lesions, and other reasons for GI tract blood loss. This will be arranged at her convenience. She is aware of risks and benefits and agrees to proceed. She is advised stop iron one week before the procedure per Plan Of Treatment Medication Medication Name Sig Start Date Stop [...] Up: 1 Year, Reason: Provider Name:Christo barrett , 03/22/2025 09:20:00 AM, [address] [place] [address], [address], [place], [address], Progress Notes * NERIS CHARLIESYBILB: 7 (59 yo F)Acc No.[id number]:10/26/2024 Progress Notes Patient:?DAXA CORDON Provider:?Christo Pierce MD :1965???Age:59 Y???Sex:Female D ate:10/26/2024 Address: [address], [id number] Pcp:Piyush Trores MD Subjective: * Chief Complaints: * ???1. Patient presents today for a gi bleed. * HPI: ???New symptom(s):? The patient is a pleasant 59-year-old woman seen today in consultation. She was seen in her primary care providers office, and had lab work done prior to the visit which documented a hematocrit of 24 with a hemoglobin of 5.8. This was down from normal values in January of 2022. MCV was also low. She was referred to the ER and underwent blood transfusion with 3 units of packed red blood cells. Imaging of the chest abdomen and pelvis by CT scanning showed diffuse wall thickening of the mid and distal esophagus with a moderately large hiatal hernia. No masses were seen. We reviewed this today. Stool occult blood testing was positive. We reviewed this today. ?She reports some weight loss of about 4 pounds due to diet changes. She reports a normal regular bowel movements. Hiatal hernia was diagnosed in 2021, when she had an episode of abdominal pain in 2021. CT scanning was done at that time. She has no complaints of dysphagia, hematemesis, or melena. She is taking famotidine for chronic reflux symptoms. * ROS:?General/Constitutional:?Change in appetite?denies.?Fatigue?denies.?ENT:?Patient denies?difficulty swallowing.?Respiratory:?Patient denies?shortness of breath.?Cardiovascular:?Patient denies?chest pain.?Gastrointestinal:?Comments?See HPI for details.?Genitourinary:?Difficulty urinating?denies.?Incontinence?denies.?Musculoskeletal:?Patient denies?muscle aches.?Skin:?Patient denies?pruritis.?Neurologic:?Patient denies?low back pain.?Psychiatric:?Patient denies?mental or physical abuse.? * Medical History:?Asthma, Gas troesophageal reflux disease/hiatal hernia, Seasonal allergic rhinitis, Colonoscopy 03/04, normal, ten-year followup. * Surgical History:?Left foot fracture, surgical repair 1995, dislocated hip 1985. * Family History:?Father: dece ased.?Mother: , colitis, diverticulitis, diagnosed with Colon polyps.? * Social History:?Tobacco Use:?Tobacco Use/Smoking?Patient is a?nonsmoker.?Drugs/Alcohol:?Alcohol Screen?Did you have a drink containing alcohol in the past year??Yes,?How often did you have a drink containing alcohol in the past year??2 to 4 times a month (2 points),?How many drinks did you have on a typical day when you were drinking in the past year??3 or 4 drinks (1 point),?How often did you have 6 or more drinks on one occasion in the past year??Never (0 point),?Points?3,?Interpretation?Positive.?Miscellaneous:?Marital status: . 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 * Medications:?Taking iron , N otes: once a day, Taking Famotidine , Taking Loratadine , Taking Magnesium , Taking Tums , Taking Albuterol Sulfate HFA 108 (90 Base) MCG/ACT Aerosol Solution Inhalation , Taking Pulmicort Flexhaler 180 MCG/ACT Aerosol Powder Breath Activated Inhalation , Discontinued Loestrin Fe 1.5 , Discontinued Fish Oil , Discontinued Multivitamin Adults , Discontinued flovent HFA , Discontinued Colyte with Flavor Packs 240 GM Solution Reconstituted As directed Orally Over the specified time., Medication List reviewed and reconciled with the patient * Allergies:?Soy Isoflavones: sensitivity. Objective: * Vitals:?Wt: 182 lbs, Ht: 62 in, BMI:33.28 Index, BP: 00/00 mm Hg. * Examination: ???General Examination: ?GENERAL APPEARANCE:?in no acute distress.?HEAD:?normocephalic.?EYES:?sclera non-icteric.?ORAL CAVITY:?mucosa moist.?NECK/THYROID:?no lymphadenopathy.?SKIN:?anicteric.?HEART:?S1, S2 normal, no murmurs.?LUNGS:?clear to auscultation bilaterally.?CHEST:?normal shape and expansion.?ABDOMEN:?soft, nontender, nondistended, bowel sounds present, no organomegaly .?EXTREMITIES:?no clubbing, cyanosis, or edema.?PSYCH:?cognitive function intact.? Assessment: * Assessment: 1.?Iron deficiency anemia, u nspecified iron deficiency anemia type - D50.9 (Primary)?2.?Heme positive stool - R19.5?3.?Abnormal CT scan, gastrointestinal tract - R93.3? We discussed her anemia, CT scan, and stool occult blood findings today. She was remarkably asymptomatic from the severe anemia, suggesting this is chronic GI blood loss. This could be from the upper or lower GI tract based on her findings and have recommended upper endoscopy and colonoscopy for further evaluation. We discussed the wide differential diagnosis for this including upper and lower GI lesions, and other reasons for GI tract blood loss. This will be arranged at her convenience. She is aware of risks and benefits and agrees to proceed. She is advised stop iron one week before the procedure per. Plan: * Treatment: ?Procedure: COLONOSCOPY (Ordered for 10/26/2024)* sched for 11/18/24 at 7:30 amm acmiralax Notes: Colonoscopy material was printed??2.?Heme positive stool?Procedure: UPPER GI ENDOSCOPY (Ordered for 10/26/2024)* sched for 11/18/24 at 7:30 amm ac ?Procedure: COLONOSCOPY (Ordered for 10/26/2024)* sched for 11/18/24 at 7:30 amm acmiralax 3.?Abnormal CT scan, gastrointestinal tract?Procedure: UPPER GI ENDOSCOPY (Ordered for 10/26/2024)* sched for 11/18/24 at 7:30 amm ac ?Procedure: COLONOSCOPY (Ordered for 10/26/2024)* sched for 11/18/24 at 7:30 amm acmiralax * Procedure Codes:?3017F COLOR ECTAL CA SCREEN DOC REV, G9745 DOC RSN FOR NOT SCREEN/REC F/U HBP * Preventive Medicine:? ??Counseling:?Care goal follow-up plan:?Above Normal BMI Follow-up?Giving encouragement to exercise,?BMI management provided?Yes.? * Follow Up:?1 Year * * Sign off status: Completed true * Provider:?Christo Pierce MD Date:?1 12/27/2023 Generated for Blairi milind/Alphonse/eTransmitting on:?03/07/2025 06:46 PM EDT History and Physical Notes * HPI (History of Present Illness) Category Sub-Category Detail Notes Category Not es New symptom(s) The patient is a pleasant 59-year-old woman seen today in consultation. She was seen in her primary care providers office, and had lab work done prior to the visit which documented a hematocrit of 24 with a hemoglobin of 5.8. This was down from normal values in January of 2022. MCV was also low. She was referred to the ER and underwent blood transfusion with 3 units of packed red blood cells. Imaging of the chest abdomen and pelvis by CT scanning showed diffuse wall thickening of the mid and distal esophagus with a moderately large hiatal hernia. No masses were seen. We reviewed this today. Stool occult blood testing was positive. We reviewed this today. She reports some weight loss of about 4 pounds due to diet changes. She reports a normal regular bowel movements. Hiatal hernia was diagnosed in 2021, when she had an episode of abdominal pain in 2021. CT scanning was done at that time. She has no complaints of dysphagia, hematemesis, or melena. She is taking famotidine for chronic reflux symptoms. Examination Category Sub-Category Detail Notes Category Not es General Examination GENERAL APPEARANCE: in no acute di stress HEAD: normocephalic EYES: sclera non-icteric NECK/THYROID: no lymphadenopathy HEART: S1, S2 normal, no mu rmurs CHEST: normal shape and exp ansion LUNGS: clear to auscultatio n bilaterally ABDOMEN: soft, nontender, non distended, bowel sounds present, no organomegaly SKIN: anicteric EXTREMITIES: no clubbing, cyanosi s, or edema PSYCH: cognitive function i ntact ORAL CAVITY: mucosa moist
--- OUTSIDE RECORDS SUMMARY | 2025-03-07 18:46 | XMS_ITS | Patient Health Record ---
Author Organization [facility] Address [address] [place] [address] Care Team Providers Care Supervisor Hydrochloric Area Name Role Phone Brian RODRIGUEZ, Piyush Primary Care Provider Unavailab Christo Damian Jr Unavailable [phone] Allergies Allergen (clinical drug ingredient) Drug/Non Drug Allergy documented on EMR Reaction Allergy Type Onset Date Status Soy Isoflavones sensitivity Drug Allergy Active Results Component Value Reference Range Notes Complete Blood Count no Diff Reviewed date:11/18/2024 01:56:33 PM Interpretation: Performing Lab:[facility], [address] [place] [id number] Notes/Report: White Blood Count 4.1 4.8-10.8 X10*3/uL Red Blood Count 5.62 4.20-5.50 X10*6/uL Hemoglobin 12.6 12.0-16.0 g/dl Hematocrit 42.9 37.0-47.0 % Mean Corpuscular Volume 76.3 80.0-98.0 fL Mean Corpuscular Hemoglobin 22.4 27.0-33.0 pg Mean Corpuscular HGB Conc 29.4 31.0-35.0 g/dl Red Cell Distribution Width TNP 11.0-16.0 % Platelet Count 177 160-400 X10*3/uL Mean Platelet Volume TNP 9.4-12.3 fL NRBC Pct Auto 0.0 0.0-0.2 /100WBC NRBC Abs Auto 0.000 0.0-0.012 X10*3/uL Pathology Reviewed date:11/24/2024 11:15:10 AM Interpretation: Performing Lab:[facility], [address], [place] [address] Notes/Report: Name: Tamra Jean Age/Sex: 59/F : 1965 Unit#: [id number] Attend Dr: Christo Pierce MD Re11/18/24 Status : [facility] Location: [facility] Disch: SPEC : [id number] RECD: 11/18/24 STATUS: LEWIS PERALTA NUM: [id number] JULIEN: 11/18/24-0758 [facility] DR: Christo Pierce MD ENTERED: 11/18/24 61 SP TYPE: Surgical OTHR DR: Piyush Patel MD ORDERED: HE Stain/6, Gross Micro L4/3, IHC, H. pylori, Eso bx BA w/exc Addendum Addendum 1 Entered: 11/24/24 Immunostain for H. p anthonyori on B is negative. Control stains appropriately. Addendum Signed (signature on file) Rupa Ramirez 11/24/24903 Diagnosis A. Duodenum, biopsy: Duodenal mucosa with preserved villi and no specific change. B. Gastric antrum, b iopsy: Gastric antral mucosa with mild reactive changes, focal ectatic vessels, foc al positive possible erosion, and minimal chronic inactive gastritis; negative for intesti nal metaplasia and dysplasia. C. Esophagus, at 26 cm, biopsy: Squamous mucosa with erosive esophagitis with many intraepithelial neut rophils and eosinophils (focally greater than 70 per high-power field), and columnar mucosa with moderate chronic active inflammation, hyperplasia, reactive changes, an d intestinal metaplasia; negative for dysplasia (see comment). Comment: (B): Immunostain for H. pylori pending; addendum to follow. (C): Appearances are compatible with Morocho's esophagus and endoscopic correlation is necessary. The level of intraepithelial eosinophils is very high and eosinophilic esophagitis cannot b e excluded; clinical and endoscopic correlation necessary. Clinical History Pre-Op Dx: Fecal abnormalities Post-Op Dx: Erosive esophagitis, gastric ulcers, hiatal hernia, normal colon Microscopic Description Microscopic sections reviewed. CONTINUED ON NEXT PAGE Name: Tamra Jean Age/Sex: 59/F : 1965 [id number]#: [id number] Attend Dr: Christo Pierce MD Re11/18/24 Status : [facility] Location: [facility] Disch: SPEC : [id number] RECD: 11/18/24 STATUS: LEWIS PERALTA NUM: [id number] JULIEN: 11/18/240758 [facility] DR: Christo Pierce MD ENTERED: 11/18/24 59 SP TYPE: Surgical OTHR DR: Piyush Patel MD ORDERED: HE Stain/6, Gross Micro L4/3, IHC, H. pylori, Eso bx BA w/exc Material Received A. Duodenum bx's B. Antrum bx's C. Esophagus bx's at 26 Gross Description Received in 3 parts. A. Received in forma kiya labeled ?duodenum biopsies(sic)? is a fragment of persaud-white soft tissue measuring 0.3 cm in greatest dimension which is wrapped in lens paper and entirely submitted for micros copic examination, 1 piece in cassette A. B. Received in forma kiya labeled ?antrum biopsies? are 2 fragments of persaud-white soft tissue measuring 0.1 and 0. 3 cm in greatest dimension which are wrapped in lens paper and entirely submitted for micros copic examination, 2 pieces in cassette B. C. Received in forma kiya labeled ?esophagus biopsies at 26? are 2 fragments of translucent, persaud-white soft tissu e measuring 0.3 and 0.4 cm in greatest dimension which are wrapped in lens paper and entir henny submitted for microscopic examination, 2 pieces in cassette [facility] Special studies orde red and performed: Immunostain for H. pylori on B1. Copies To: Christo Pierce MD [facility] [address] [place] [address] [address] [place] [address] Piyush Patel MD [address] [place] [address] [address] [place] [id number] Signed (si gnature on file) Rupa Manchester 11/21/24 1549 END OF REPORT Reason For Referral Referring Provider First Name Piyush Referring Provider Last Name Brian Referring Provider Speciality Internal M edicine Referred Organization [facility] Referred Provider Christo Pierce Jr Referred Address [address] [place] [phone], Referred Provider Specialty Gastroentero logy General Notes Meliza aPk 024 03:43:00 PM EST > call Dr. Patel's office at [phone] to request a [facility] referral for visit with Dr. Pierce on 10-26-2024, Meliza Pak 10/24/2024 10:21:04 AM EST > spoke with Lucy at Dr. Patel's ....she is working on this. Had trouble with the website and will fax me the authorization number, Meliza Pak 10/25/2024 12:03:44 PM EST > VERBAL AUTHORIZATION GIVEN TO ME BY LUCY AT DR BRINK. SHE WILL FAX THE ORIGINAL REFERRAL ONCE SHE RECEIVES IT FROM [facility] Referral Priority Routine Medications Medication SIG (Take, Route, Frequency, Duration) Notes Start Date End Date Status iron once a day Active Loratadine Active Famotidine Active Omeprazole 40 MG TAKE 1 CAPSULE BY [facility] DAILY for 90 Active MiraLax (colon prep) 17 GM/SCOOP mixed with Gatorade or Crystal Light Orally begin at 5:00 p.m. the day before the procedure for 1 day 10/26/2024 Active Tums Active Magnesium Active Pulmicort Flexhaler 180 MCG/ACT Inhalation for 90 Active Albuterol Sulfate HFA 108 (90 Base) MCG/ACT Inhalation for 90 A ctive Immunizations Vaccine Route Administration Date Status Comme nts Influenza Unknown 12/02/2018 Refused Social History Tobacco Use: Social History Observation [...] Problem Status W/U Status Risk Notes Problem 275966289 Colon cancer screening (Z12.11) Active confirmed Problem 92827811 Encounter for ot her preprocedural examination (Z01.818) Active confirmed Problem Iron deficiency anemia (52075677) Iron deficiency anemia (D50.9) Active confirmed Problem 590367662 Abnormal CT scan , gastrointestinal tract (R93.3) Active confirmed Problem Erosive esophagitis (28067884) Erosive esophagitis (K22.10) Active confirmed Problem 30630505 Heme positive st ool (R19.5) Active confirmed Problem 86256799 Iron deficiency anemia, unspecified iron deficiency anemia type (D50.9) Active confirmed Problem Gastric ulcer (064382548) Gastric ulcer (K25.9) Active confirmed Vital Signs Blood pressure diastolic 00 mm Hg 10/26/2024 Height 62 in 10/26/2024 Blood pressure systolic 00 mm Hg 10/26/2024 Weight 182 lbs 10/26/2024 BMI 33.28 kg/m2 10/26/2024 Encounters Encounter Location Date Provider Diagnosis [facility] [address] [place], [place] [id number] 11/18/2024 Christo Pierce Jr Heme + stool R19.5 ; Iron deficiency anemia D50.9 ; Abnormal abdominal CT scan R93.5 ; Erosive esophagitis K22.10 and Gastric ulcer K25.9 [facility] [address] [place] [address] 10/26/2024 Christo Pierce Jr Iron deficiency anemia, unspecified iron deficiency anemia type D50.9 ; Heme positive stool R19.[address] scan, gastrointestinal tract R93.3 [facility] [address] [place], [place] [address] 10/17/2024 Christo Pierce Jr [facility] [address] [place], [place] [address] 11/24/2024 Christo Pierce Jr Assessments Encounter Date Diagnosis (ICD Code) Assessment Notes Treatment Notes Treatment Clinical Notes Section Notes 11/18/2024 Iron deficiency anemia (ICD-10 - D50.9) 11/18/2024 Heme + stool (ICD-10 - R19.5) 10/26/2024 Heme positive stool (ICD-10 - R19.5) [...] one week before the procedure per 10/26/2024 Iron deficiency anemia, unspecified iron deficiency [...] iron one week before the procedure per 11/18/[address] scan (ICD-10 - R93.5) 10/26/[address] scan, gastrointestinal tract (ICD-10 [...] iron one week before the procedure per 11/18/2024 Erosive esophagitis (ICD-10 - K22.10) 11/18/2024 Gastric ulcer (ICD-10 - K25.9) Plan Of Treatment Future Test Test Name Order Date COLONOSCOPY 12/02/2018 UPPER GI ENDOSCOPY 10/26/2024 COLONOSCOPY 10/26/2024 Next Appt Details Provider Name:Christo barrett , 03/22/2025 09:20:00 AM, [address] [place] [address], [address], [place], [address], Insurance Providers Payer Name Payer Address Payer Phone Subscriber Number Group Number Insured Name Patient Relationship to Insured Coverage Start Date Coverage End Date [employer] [address] [place] [phone] [id number] TAMRA JEAN Self - patient is the insured Medical (General) History Medical History History ICD Code Asthma Gastroesophageal reflux disease/hiatal h ernia Seasonal allergic rhinitis Colonoscopy 03/04, normal, ten-year follo wup Surgical History Surgery Date(Month/Year) Left foot fracture, surgical repair 1995 dislocated hip 1985
--- OUTSIDE RECORDS SUMMARY | 2025-03-07 18:46 | XMS_ITS ---
Author Organization [facility] Address [address] [place] [address] Care Team Providers Care Plating And Point Assembly Supervisor Name Role Phone Piyush Torres MD Primary Care Provider Unavailab bethany Pierce Jr, Christo Toledo REASON FOR VISIT pathology Encounters Encounter Location Date Provider Diagnosis [facility] [address] [place] [address] [address] [place] [address] 11/24/2024 Christo Pierce Jr Plan Of Treatment Next Appt Details Provider Name:Christo barrett Jr, 03/22/2025 09:20:00 AM, [address] [place] [address], [address], [place], [address], Progress Notes * CHARLIE CORDONIDOB: 7 (59 yo F)Acc No.[id number]:11/24/2024 Patient:?NERISCHARLIEI :1965???Age:59 Y???Sex:Female Address:[address] [place], [address] * true * Date:? Generated for Printi ng/Faclementeg/eTransmitting on:?03/07/2025 06:46 PM EDT
== END 2025-03-07 16:15 | disposition home or self-care (01) ==
LOC: HO.LAB 16:14
PROVIDERS: PCP Family Medicine; Visit Provider Family Medicine
DX: D50.9 Iron deficiency anemia, unspecified (principal)
CPT/HCPCS: 36415; 83540; 85025

== ENCOUNTER 2025-04-18 16:15 | Outpatient (REF) | payer OTHER, SELFPAY ==
--- NOTE | ~2025-04-18 | XR_ITS ---
EXAMINATION: XR HIP, RIGHT CLINICAL INFORMATION: PAIN COMPARISON: None TECHNIQUE: Two views of the right hip. FINDINGS: There is mild narrowing of the superolateral right hip joint space. There is no bony abnormality. There is no deformity. XR/XR hip RT min 2V IMPRESSION: Mild narrowing of the superolateral hip joint space. Electronically signed by: Rodrigo Salomon MD 04/18/2025 05:52 PM EDT
--- OUTSIDE RECORDS SUMMARY | 2025-04-18 17:10 | XMS_ITS | Patient Health Record ---
Author Organization [facility] Address [address] [place] [address] Care Team Providers Care Director Maternal Child Name Role Phone Brian RODRIGUEZ, Piyush Primary Care Provider Unavailab Christo Damian Jr Unavailable Allergies Allergen (clinical drug ingredient) Drug/Non Drug Allergy documented on EMR Reaction Allergy Type Onset Date Status Soy Isoflavones sensitivity Drug Allergy Active Results Component Value Reference Range Notes Complete Blood Count no Diff Reviewed date:11/18/2024 01:56:33 PM Interpretation: Performing Lab:[facility], [address] [place] [address] Notes/Report: White Blood Count 4.1 4.8-10.8 X10*3/uL [...] Pathology Reviewed date:11/24/2024 11:15:10 AM Interpretation: Performing Lab:[facility], [address] [facility], [place] [address] Notes/Report: Name: Tamra Jean Age/Sex: 59/F : 1965 Unit#: [id number] Attend Dr: Christo Pierce MD Re11/18/24 Status : [facility] Location: [facility] Disch: SPEC : [id number] RECD: 11/18/24 STATUS: LEWIS PERALTA NUM: [id number] JULIEN: 11/18/24-0758 [facility] DR: Christo Pierce MD ENTERED: 11/18/24 59 SP TYPE: Surgical OTHR DR: Piyush Paetl MD ORDERED: HE Stain/6, Gross Micro L4/3, [...] Name: Tamra Jean Age/Sex: 59/F : 1965 [id number] Unit#: [id number] Attend Dr: Christo Pierce MD Re11/18/24 Status : [facility] Location: [facility] Disch: SPEC : [id number] RECD: 11/18/24 STATUS: LEWIS PERALTA NUM: [id number] JULIEN: 11/18/240758 [facility] DR: Christo Pierce MD ENTERED: 11/18/24 61 [...] microscopic examination, 2 pieces in cassette C. [facility] Special studies orde red and performed: Immunostain for H. pylori on B1. Copies To: Christo Pierce MD [facility] [address] [place] [address] [address] [place] [address] Piyush Patel MD [address] [place] [address] [address] [place] [id number] Signed (si gnature on file) Rupa Ramirez 11/21/24 1549 END OF REPORT Reason For Referral Referring Provider First Name Piyush Referring Provider Last Name Brian Referring Provider Speciality Internal M edicine Referred Organization [facility] Referred Provider Christo Pierce Jr Referred Address [address] [place] [phone], Referred Provider Specialty Gastroentero logy General Notes Meliza Pak 024 03:43:00 PM EST > call Dr. Patel's office at [phone] to request [facility] for visit with Dr. Pierce on [...] ORIGINAL REFERRAL ONCE SHE RECEIVES IT FROM [facility] Referral Priority Routine Medications Medication SIG (Take, Route, Frequency, Duration) Notes Start Date End Date Status Omeprazole 40 MG TAKE 1 CAPSULE BY [facility] DAILY for 90 Active Albuterol Sulfate HFA 108 (90 Base) MCG/ACT Inhalation for 90 A ctive Pulmicort Flexhaler 180 MCG/ACT Inhalation for 90 Active Magnesium Active Loratadine Active iron once a day Active Immunizations Vaccine Route Administration Date Status Comme nts Influenza Unknown 08/02/2024 Administered Influenza Unknown 12/02/2018 Refused Social History Tobacco [...] Problem Status W/U Status Risk Notes Problem 800447992 Colon cancer screening (Z12.11) Active confirmed Problem 08871902 Encounter for ot her preprocedural examination (Z01.818) Active confirmed Problem Barretts esophagus (621388595) Barretts esophagus (K22.70) Active confirmed Problem Iron deficiency anemia (51492043) Iron deficiency anemia (D50.9) Active confirmed Problem 535699164 Abnormal CT scan , gastrointestinal tract (R93.3) Active confirmed Problem Erosive esophagitis (94686591) Erosive esophagitis (K22.10) Active confirmed Problem 66885815 Heme positive st ool (R19.5) Active confirmed Problem 76333284 Iron deficiency anemia, unspecified iron deficiency anemia type (D50.9) Active confirmed Problem Gastric ulcer (566829188) Gastric ulcer (K25.9) Active confirmed Vital Signs Temperature 98.2 degrees Fahrenheit 03/22/2025 Blood pressure diastolic 01 mm Hg 03/22/2025 Height 62 in 03/22/2025 Blood pressure systolic 001 mm Hg 03/22/2025 Weight 199.6 lbs 03/22/2025 BMI 36.5 kg/m2 03/22/2025 Encounters Encounter Location Date Provider Diagnosis [facility] Outpatient [address] [place], [place] [id number] 11/18/2024 Christo Pierce Jr Heme + stool R19.5 ; Iron deficiency anemia D50.9 ; Abnormal abdominal CT scan R93.5 ; Erosive esophagitis K22.10 and Gastric ulcer K25.9 [facility] [address] [facility] [address] [place] [address] 10/26/2024 Christo Pierce Jr Iron deficiency anemia, unspecified iron deficiency anemia type D50.9 ; Heme positive stool R19.[address] scan, gastrointestinal tract R93.3 [facility] [address] [place] [address] 03/22/2025 Christo Pierce Jr Erosive esophagitis K22.10 and Barretts esophagus K22.70 [facility] [address] [place] [address] 10/17/2024 Christo Pierce Jr [facility] [address] [place] [address] 11/24/2024 Christo Pierce Jr Assessments Encounter Date Diagnosis (ICD Code) Assessment Notes Treatment Notes Treatment Clinical Notes Section Notes 11/18/2024 Iron deficiency anemia (ICD-10 - D50.9) 11/18/2024 Heme + stool (ICD-10 - R19.5) 10/26/2024 Heme positive stool (ICD-10 - R19.5) We discussed he r anemia, CT scan, and stool occult blood [...] iron one week before the procedure per 03/22/2025 Barretts esophagus (ICD-10 - K22.70) We discussed t he findings at endoscopy in detail today. We discussed erosive esophagitis, gastroesophageal reflux disease, hiatal hernia, and Justus erosions. We recommended she continue omeprazole. Follow-up endoscopy will be arranged at her convenience because of the findings at her last endoscopy. She is up-to-date on colorectal cancer screening. Today's visit was 30 minutes. 03/22/2025 Erosive esophagitis (ICD-10 - K22.10) We discussed t he findings at endoscopy in detail today. We discussed erosive esophagitis, gastroesophageal reflux disease, hiatal hernia, and Justus erosions. We recommended she continue omeprazole. Follow-up endoscopy will be arranged at her convenience because of the findings at her last endoscopy. She is up-to-date on colorectal cancer screening. Today's visit was 30 minutes. 11/18/[address] scan (ICD-10 - [...] 12/02/2018 UPPER GI ENDOSCOPY 10/26/2024 COLONOSCOPY 10/26/2024 UPPER GI ENDOSCOPY 03/22/2025 Next Appt Details Provider Name:Christo barrett , 05/26/2025 07:30:00 AM, [address] [place] [address], [address], [place], [address], Insurance Providers Payer Name Payer Address Payer Phone Subscriber Number Group Number Insured Name Patient Relationship to Insured Coverage Start Date Coverage End Date [facility] [address] [place] [phone] [id number] TAMRA JEAN Self - patient is the insured Medical (General) History Medical History History ICD Code Asthma Gastroesophageal reflux dise ase/hiatal hernia EGD 12/10, erosive esophagitis with Morocho's changes and Justus erosions. Seasonal allergic rhinitis Colonoscopy 12/10, normal, 10-year follow -up Surgical History Surgery Date(Month/Year) dislocated hip 1985 Left foot fracture, surgical repair 1995
== END 2025-04-18 16:16 | disposition home or self-care (01) ==
LOC: HO.XRAY 16:15
PROVIDERS: PCP Family Medicine; Visit Provider Family Medicine
DX: M25.551 Pain in right hip (principal)
CPT/HCPCS: 73502

== ENCOUNTER → 2025-04-18 16:30 | Outpatient (BNV) | payer OTHER, SELFPAY | PROVIDERS: PCP Family Medicine; Visit Provider Radiology Diagnostic Radiology | DX: M25.551 Pain in right hip (principal) | CPT/HCPCS: 73502 ==

== ENCOUNTER 2025-05-18 10:29 | Outpatient (REF) | payer OTHER, SELFPAY ==
[2025-05-18 11:17] LABS: MANUAL DIFF FLAG NO
[2025-05-18 11:30] LABS: Hematocrit 43.8 % (37.0-47.0); Hemoglobin 14.4 g/dl (12.0-16.0); Imm Gran Abs Auto 0.01 X10*3/uL (0.00-0.03); Imm Gran Pct Auto 0.2 % (0.0-0.4); Lymphocytes Absolute Auto 1.2 X10*3/uL (1.2-4.9); Mean Corpuscular HGB Conc 32.9 g/dl (31.0-35.0); Mean Corpuscular Hemoglobin 29.5 pg (27.0-33.0); Mean Corpuscular Volume 89.8 fL (80.0-98.0); NRBC Abs Auto 0.000 X10*3/uL (0.0-0.012); NRBC Pct Auto 0.0 /100WBC (0.0-0.2); Platelet Count 192 X10*3/uL (160-400); Red Blood Count 4.88 X10*6/uL (4.20-5.50); White Blood Count 4.3 X10*3/uL (4.8-10.8)
[2025-05-18 11:37] LABS: Hemoglobin A1C 128.2480 umol/L; Total Hemoglobin (HGBA1C) 3794.3936 umol/L
[2025-05-18 12:07] LABS: Alanine Aminotransferase 21 U/L (0-31); Albumin Level 4.4 g/dL (3.5-5.0); Alkaline Phosphatase 89 U/L (39-117); Anion Gap 9 (12-20); Aspartate Amino Transferase 22 U/L (5-31); Blood Urea Nitrogen 21 mg/dL (9-16); Calcium 9.1 mg/dL (8.4-10.2); Carbon Dioxide 31 mmol/L (22-29); Chloride 104 mmol/L (96-108); Cholesterol 214 mg/dL (<200); Estimated Glomerular Filt Rate > 60; HDL Cholesterol 69 mg/dL (>40); Iron 123 mcg/dL (30-160); Percent Iron Saturation 34 % (15-50); Potassium 4.1 mmol/L (3.3-5.1); Sodium 140 mmol/L (135-145); Total Iron Binding Capacity 358 mcg/dL (228-428); Total Protein 7.1 g/dL (6.5-8.0); Triglycerides 48 mg/dL (<150); Unsaturated Iron Binding 235 ug/dL
== END 2025-05-18 10:30 | disposition home or self-care (01) ==
LOC: HO.LAB 10:29
PROVIDERS: PCP Internal Medicine; Visit Provider Internal Medicine
DX: K29.60 Other gastritis without bleeding (principal); K22.719 Barrett's esophagus with dysplasia, unspecified; D50.9 Iron deficiency anemia, unspecified; J45.909 Unspecified asthma, uncomplicated; Z13.220 Encounter for screening for lipoid disorders; Z13.228 Encounter for screening for other metabolic disorders; Z13.1 Encounter for screening for diabetes mellitus; Z13.31 Encounter for screening for depression; Z13.39 Encounter for screening examination for other mental health and behavioral disorders
CPT/HCPCS: 36415; 80053; 80061; 83036; 83540; 84443; 85025; 96127

== ENCOUNTER 2025-05-18 10:29 | Outpatient (AMB) | payer OTHER, SELFPAY ==
--- NOTE | 2025-05-18 10:31 | A.OFFPC_ITS ---
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 [facility] Last mammogram; 2023. Scheduled 08/2025 Colonoscopy 11/2024-10 year Denies any family history of ovarian or colon cancer. FH breast cancer. ROS CONSTITUTIONAL: Denies weight loss, fever and chills. HEENT: Denies changes in vision and hearing. RESPIRATORY: Denies SOB and cough. CV: Denies palpitations and CP GI: Denies abdominal pain, nausea, vomiting and diarrhea. : Denies dysuria and urinary frequency. MSK: Denies new myalgia and joint pain. SKIN: Denies rash and pruritus. NEUROLOGICAL: Denies headache PSYCHIATRIC: Denies recent changes in mood. PHYSICAL EXAM: GENERAL: Alert and oriented x 3. NAD EYES: EOMI. Anicteric. HENT: Moist mucous membranes. No scleral icterus. No cervical lymphadenopathy. LUNGS: Clear to auscultation bilaterally. CARDIOVASCULAR: Regular rate and rhythm. No murmur. No JVD. ABDOMEN: Soft, non-tender +bs EXTREMITIES: No edema. Non-tender. SKIN: No rashes or lesions. Warm. NEUROLOGIC: No focal neurological deficits. CN II-XII grossly intact PSYCHIATRIC: Cooperative. Appropriate mood and affect [facility] Medical History Hiatal hernia GERD (gastroesophageal reflux disease) Asthma Gallstones Allergies Surgical History History of hip surgery H/O colonoscopy (~11/18/24) Hx of foot surgery Family History Paternal Aunt Breast cancer Maternal Aunt Lung cancer Social History Household Members: Spouse Are you a primary critical care transport nurse to a significant other at home: No Do you presently have visiting nurse or other home services: No Alcohol intake: current Alcohol intake frequency: a few times a month Patient Tobacco Use Status: Never used Tobacco Current occupational status: employed Current occupation: [employer] Sexual orientation: Straight/Heterosexual Gender identity: Female Questionnaire PHQ-9 Over the last 2 weeks, how often have you been bothered by any of the following problems? 1. Little interest or pleasure in doing things: not at all 2. Feeling down, depressed, or hopeless: not at all 3. Trouble falling or staying asleep, or sleeping too much: not at all 4. Feeling tired or having little energy: not at all 5. Poor appetite or overeating: not at all 6. Feeling bad about yourself - or that you are a failure or have let yourself or your family down: not at all 7. Trouble concentrating on things, such as reading the newspaper or watching television: not at all 8. Moving or speaking so slowly that other people could have noticed. Or the opposite - being so fidgety or restless that you have been moving around a lot more than usual: not at all 9. Thoughts that you would be better off or of hurting yourself in some way: not at all Total score: 0 Depression Screening Interpretation: Negative Depression Screening Done: Yes 57351 - PHQ-9 Billing: Yes Source: Developed by Drs. Sergei Carlisle, Jessica Yip, Mykel Cowart and colleagues, with an educational jade from [employer]. Thrive Questionnaire Date Thrive assessed: 05/18/25 I am a: Patient What is your living situation today?: I have a steady place to live Within the past 12 months, did the food you bought not last and you didn't have the money to get more?: Never true Within the past 12 months, did you worry whether your food would run out before you got money to buy more?: Never true Do you have trouble paying for medicines?: No Do you have trouble getting transportation to medical appointments?: No Do you have trouble paying your heating and electricity bill?: No Do you have trouble taking care of your child, family member or friend?: No Do you have trouble with day-to-day activities such as bathing, preparing meals, shopping, managing finances, etc.?: No Are you currently unemployed and looking for a job?: No Are you interested in more education?: No THRIVE Score: 0 JAXSON-7 AMB Questionnaire JAXSON-7 Date JAXSON - 7 assessed: 05/18/25 Feeling nervous, anxious, or on edge: 0 = Not at all Not being able to stop or control worryin = Not at all Worrying too much about different things: 0 = Not at all Trouble relaxin = Not at all Being so restless that it is hard to sit still: 0 = Not at all Becoming easily annoyed or irritable: 0 = Not at all Feeling afraid as if something awful might happen: 0 = Not at all Total JAXSON-7 score (0-4 normal; 5-9 mild; 10-14 moderate; 15-21 severe): 0 Source: Developed by Drs. Sergei Carlisle, Jessica Yip, Mykel Cowart and colleagues, with an educational jade from [employer]. 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 Morocho's esophagus type: with dysplasia of unspecified degree Iron deficiency anemia, unspecified iron deficiency anemia type D50.9 Iron deficiency anemia type: unspecified iron deficiency Additional Codes PHQ-9 - 45944 - PHQ-9 Billing: Yes ([id number]) Assessment & Plan Assessment & Plan (1) Erosive gastritis: Code(s): K29.60 - Other gastritis without bleeding Category: Medical (2) Morocho esophagus: Code(s): K22.70 - Morocho's esophagus without dysplasia Category: Medical Qualifiers: Morocho's esophagus type: with dysplasia of unspecified degree Quali fied Code(s): K22.719 - Morocho's esophagus with dysplasia, unspecified (3) CATIE (iron deficiency anemia): Code(s): D50.9 - Iron deficiency anemia, unspecified Category: Medical Qualifiers: Iron deficiency anemia type: unspecified iron deficiency Qualified Code(s): D50.9 - Iron deficiency anemia, unspecified Plan 60 year old to establish care Past medical, surgical, social reviewed Labs ordered. Referral placed Mammo ordered. Orders: Orders Comprehensive Met. Panel Today D50.9 - Iron deficiency anemia, unspecified, Z13.220 - Encounter for screening for lipoid disorders, Z13.228 - Encounter for screening for other metabolic disorders Complete Blood Count Auto Diff Today D50.9 - Iron deficiency anemia, unspecified, Z13.220 - Encounter for screening for lipoid disorders, Z13.228 - Encounter for screening for other metabolic disorders MM screening mammo BI Today Z12.31 - Encounter for screening mammogram for malignant neoplasm of breast Lipid Panel Today D50.9 - Iron deficiency anemia, unspecified, Z13.220 - Encounter for screening for lipoid disorders, Z13.228 - Encounter for screening for other metabolic disorders IRON PROFILE Today D50.9 - Iron deficiency anemia, unspecified, Z13.220 - Encounter for screening for lipoid disorders, Z13.228 - Encounter for screening for other metabolic disorders Hemoglobin A1c Today D50.9 - Iron deficiency anemia, unspecified, Z13.220 - Encounter for screening for lipoid disorders, Z13.228 - Encounter for screening for other metabolic disorders TSH reflex Free T4 Today D50.9 - Iron deficiency anemia, unspecified, Z13.220 - Encounter for screening for lipoid disorders, Z13.228 - Encounter for screening for other metabolic disorders Referrals Gastroenterology Referral D50.9 - Iron deficiency anemia, unspecified, K22.70 - Morocho's esophagus without dysplasia, K29.60 - Other gastritis without bleeding
[2025-05-18 10:39] VITALS: BP 118/76; PULSE 66; RESP 16; TEMP 36.5; O2SAT 97; BMI 36.0
--- OUTSIDE RECORDS SUMMARY | 2025-05-18 11:13 | XMS_ITS | Patient Health Record ---
Author Organization [facility] Address [address] [place] [address] Care Team Providers Care Heating And Blending Supervisor Name Role Phone Brian RODRIGUEZ, Piyush Primary Care Provider Unavailab Christo Damian Jr Unavailable Allergies Allergen (clinical drug ingredient) Drug/Non Drug Allergy documented on EMR Reaction Allergy Type Onset Date Status Soy Isoflavones sensitivity Drug Allergy Active Results Component Value Reference Range Notes Complete Blood Count no Diff Reviewed date:11/18/2024 01:56:33 PM Interpretation: Performing Lab:[facility], [place], [address] [place] [phone] Notes/Report: White Blood Count 4.1 4.8-10.8 X10*3/uL [...] Pathology Reviewed date:11/24/2024 11:15:10 AM Interpretation: Performing Lab:[facility], [place], [address] [facility], [place] [address] Notes/Report: Reason For Referral Referring Provider First Name Piyush Referring Provider Last Name Brian Referring Provider Speciality Internal M edicine Referred Organization [facility] Referred Provider Chrsito Pierce Jr Referred Address [address] [place] [address],[address],[address],[place] Referred Provider Specialty Gastroentero logy General Notes Meliza Pak 03:43:00 PM EST > call Dr. Torres's office at [phone] to request a jefferson pilgrim referral for visit with Dr. Pierce on 10-26-2024, Meliza Pak 10/24/2024 10:21:04 AM EST > spoke with Nisas at Dr. Torres's ....she is working on this. Had trouble with the website and will fax me the authorization number, Meliza Pak 10/25/2024 12:03:44 PM EST > VERBAL AUTHORIZATION GIVEN TO ME BY NISSA AT DR BRINK. SHE WILL FAX THE ORIGINAL REFERRAL ONCE SHE RECEIVES IT FROM [facility] Referral Priority Routine Referring Provider First Name Piyush Referring Provider Last Name Brian Referring Provider Speciality Internal M edicine Referred Organization [facility] Referred Provider Christo Pierce Jr Referred Address [address] [place] [address],[address],[address],[place] Referred Provider Specialty Gastroentero logy General Notes Meliza Pak 2024 09:52:07 AM >requested a new jefferson pilgrim referral from Dr. Torres's office for procedure on 05-26-2025. I spoke with the patient to have her check with [facility] to make sure this referral is still valid after Dr. Torres retires Referral Priority Routine Medications Medication SIG (Take, Route, Frequency, Duration) Notes Start Date End Date Status Omeprazole 40 MG TAKE 1 CAPSULE BY [facility] DAILY for 90 Active Albuterol Sulfate HFA [...] Problem Status W/U Status Risk Notes Problem 206047497 Colon cancer screening (Z12.11) Active confirmed Problem 00546864 Encounter for ot her preprocedural examination (Z01.818) Active confirmed Problem Barretts esophagus (232181846) Barretts esophagus (K22.70) Active confirmed Problem Iron deficiency anemia (68854424) Iron deficiency anemia (D50.9) Active confirmed Problem 370112689 Abnormal CT scan , gastrointestinal tract (R93.3) Active confirmed Problem Erosive esophagitis (88937426) Erosive esophagitis (K22.10) Active confirmed Problem 69995100 Heme positive st ool (R19.5) Active confirmed Problem 51402372 Iron deficiency anemia, unspecified iron deficiency anemia type (D50.9) Active confirmed Problem Gastric ulcer (368837393) Gastric ulcer (K25.9) Active confirmed Vital Signs Temperature 98.2 degrees Fahrenheit 03/22/2025 Blood pressure diastolic 01 mm Hg 03/22/2025 Height 62 in 03/22/2025 Blood pressure systolic 001 mm Hg 03/22/2025 Weight 199.6 lbs 03/22/2025 BMI 36.5 kg/m2 03/22/2025 Encounters Encounter Location Date Provider Diagnosis [facility] [place] [address] [place] [id number] 11/18/2024 Christo Pierce Jr Heme + stool R19.5 ; Iron deficiency anemia D50.9 ; Abnormal abdominal CT scan R93.5 ; Erosive esophagitis K22.10 and Gastric ulcer K25.9 [facility] [address] [place] [phone] 10/26/2024 Christo Pierce Jr Iron deficiency anemia, unspecified iron deficiency anemia type D50.9 ; Heme positive stool R19.[address] scan, gastrointestinal tract R93.3 [facility] [address] [place] [phone] 03/22/2025 Christo Pierce Jr Erosive esophagitis K22.10 and Barretts esophagus K22.70 [facility] [address] [place] [phone] 10/17/2024 Christo Pierce Jr [facility] [address] [place] [phone] 11/24/2024 Christo Pierce Jr [facility] [address] [place] [phone] 04/26/2025 Christo Pierce Jr Assessments Encounter Date Diagnosis [...] 03/22/2025 Next Appt Details Provider Name:Christo barrett Jr, 05/26/2025 07:30:00 AM, [address] [place] [address] , [place], [place], [phone], Insurance Providers Payer Name Payer Address Payer Phone Subscriber Number Group Number Insured Name Patient Relationship to Insured Coverage Start Date Coverage End Date [facility] [address] [place] [phone] [id number] DAXA CORDON Self - patient is the insured Medical (General) History Medical History History ICD Code Asthma Gastroesophageal reflux dise ase/hiatal hernia EGD 12/10, erosive esophagitis with Morocho's changes and Justus erosions. Seasonal allergic rhinitis Colonoscopy 12/10, normal, 10-year follow -up Surgical History Surgery Date(Month/Year) dislocated hip 1985 Left foot fracture, surgical repair 1995
== END 2025-05-18 11:09 | disposition home or self-care (01) ==
LOC: HO.HMCHD 10:29
PROVIDERS: PCP Family Medicine; Visit Provider Internal Medicine
DX: K29.60 Other gastritis without bleeding (principal); K22.719 Barrett's esophagus with dysplasia, unspecified; D50.9 Iron deficiency anemia, unspecified

== ENCOUNTER 2025-05-26 06:19 | Day surgery (SDC) | payer OTHER, SELFPAY ==
--- OUTSIDE RECORDS SUMMARY | 2025-04-21 07:54 | XMS_ITS | Patient Health Record ---
Author Organization [facility] Address [address] [place] [address] Care Team Providers Care Metallurgical Lab Technician Name Role Phone Brian RODRIGUEZ, Piyush Primary Care Provider Unavailab Christo Damian Jr Unavailable Allergies Allergen (clinical drug ingredient) Drug/Non Drug Allergy documented on EMR Reaction Allergy Type Onset Date Status Soy Isoflavones sensitivity Drug Allergy Active Results Component Value Reference Range Notes Complete Blood Count no Diff Reviewed date:11/18/2024 01:56:33 PM Interpretation: Performing Lab:[facility], [address] [place] [address] Notes/Report: White Blood Count 4.1 4.8-10.8 X10*3/uL [...] Pathology Reviewed date:11/24/2024 11:15:10 AM Interpretation: Performing Lab:[facility], [address] [facility], [place] [address] Notes/Report: Name: Tamra Jean Age/Sex: 59/F : 1965 Unit#: [id number] Attend Dr: Christo Pierce MD Re11/18/24 Status : [facility] Location: [facility] Disch: SPEC : [id number] RECD: 11/18/24 STATUS: LEWIS PERALTA NUM: [id number] JULIEN: 11/18/24-[address] [facility] DR: Christo Pierce MD ENTERED: 11/18/24 61 [...] Name: Tamra Jean Age/Sex: 59/F : 1965 [id number] Unit#: [id number] Attend Dr: Christo Pierce MD Re11/18/24 Status : [facility] Location: [facility] Disch: SPEC : [id number] RECD: 11/18/24 STATUS: LEWIS PERALTA NUM: [id number] JULIEN: 11/18/240758 [facility] DR: Christo Pierce MD ENTERED: 11/18/24 61 [...] microscopic examination, 2 pieces in cassette [facility] Special studies orde red and performed: Immunostain for H. pylori on B1. Copies To: Christo Pierce MD [facility] [address] [place] [address] [address] [place] [address] Piyush Patel MD [address] [place] [address] [address] [place] [id number] Signed (si gnature on file) Rupa Ramirez 11/21/24 1549 END OF REPORT Reason For Referral Referring Provider First Name Piyush Referring Provider Last Name Brian Referring Provider Speciality Internal M edicine Referred Organization [facility] Referred Provider Christo Pierce Jr Referred Address [address] [place] [phone], Referred Provider Specialty Gastroentero logy General Notes Meliza Pak 024 03:43:00 PM EST > call Dr. Patel's office at [phone] to request a [facility] for visit with Dr. Pierce on [...] ORIGINAL REFERRAL ONCE SHE RECEIVES IT FROM [facility] Referral Priority Routine Medications Medication SIG (Take, Route, Frequency, Duration) Notes Start Date End Date Status Omeprazole 40 MG TAKE 1 CAPSULE BY [facility] DAILY for 90 Active Albuterol Sulfate HFA [...] Problem Status W/U Status Risk Notes Problem 450867866 Colon cancer screening (Z12.11) Active confirmed Problem 93763927 Encounter for ot her preprocedural examination (Z01.818) Active confirmed Problem Barretts esophagus (194037110) Barretts esophagus (K22.70) Active confirmed Problem Iron deficiency anemia (74320753) Iron deficiency anemia (D50.9) Active confirmed Problem 722829062 Abnormal CT scan , gastrointestinal tract (R93.3) Active confirmed Problem Erosive esophagitis (46301355) Erosive esophagitis (K22.10) Active confirmed Problem 63883154 Heme positive st ool (R19.5) Active confirmed Problem 08582886 Iron deficiency anemia, unspecified iron deficiency anemia type (D50.9) Active confirmed Problem Gastric ulcer (741562780) Gastric ulcer (K25.9) Active confirmed Vital Signs Temperature 98.2 degrees Fahrenheit 03/22/2025 Blood pressure diastolic 01 mm Hg 03/22/2025 Height 62 in 03/22/2025 Blood pressure systolic 001 mm Hg 03/22/2025 Weight 199.6 lbs 03/22/2025 BMI 36.5 kg/m2 03/22/2025 Encounters Encounter Location Date Provider Diagnosis [facility] Out[facility] [address] [place], [place] [phone] 11/18/2024 Christo Pierce Jr Heme + stool R19.5 ; Iron deficiency anemia D50.9 ; Abnormal abdominal CT scan R93.5 ; Erosive esophagitis K22.10 and Gastric ulcer K25.9 [facility] [address] [facility] [address] [place] [address] 10/26/2024 Christo Pierce Jr Iron deficiency anemia, unspecified iron deficiency anemia type D50.9 ; Heme positive stool R19.[address] scan, gastrointestinal tract R93.3 [facility] [address] [place] [address] 03/22/2025 Christo Pierce Jr Erosive esophagitis K22.10 and Barretts esophagus K22.70 [facility] [address] [place] [address] 10/17/2024 Christo Pierce Jr [facility] [address] [place] [address] 11/24/2024 Christo Pierce Jr Assessments Encounter Date [...] Provider Name:Christo barrett , 05/26/2025 07:30:00 AM, [address] [place] [address], [address], [place], [address], Insurance Providers Payer Name Payer Address Payer Phone Subscriber Number Group Number Insured Name Patient Relationship to Insured Coverage Start Date Coverage End Date [facility] [address] [place] [phone] [id number] TAMRA JEAN Self - patient is the insured Medical (General) History Medical History History ICD Code Asthma Gastroesophageal reflux dise ase/hiatal hernia EGD 12/10, erosive esophagitis with Morocho's changes and Justus erosions. Seasonal allergic rhinitis Colonoscopy 12/10, normal, 10-year follow -up Surgical History Surgery Date(Month/Year) dislocated hip 1985 Left foot fracture, surgical repair 1995
[2025-05-23 16:06] VITALS: BMI 36.5
--- NOTE | 2025-05-25 08:58 | HO.ANESPROP2 ---
Documented by User: Hiwot Johnson NP 05/25/25 08:59 HPI - Anesthesia Eval Consult details Narrative: 60yo F for Upper Endoscopy s/p EGD and Silva 11/2024 with [facility] Active Problems Active Problems: All Active Problems Morocho esophagus (Acute) Erosive gastritis (Acute) CATIE (iron deficiency anemia) (Acute) Encounter for annual routine gynecological examination (Acute) Past Medical History Medical History Seasonal allergic rhinitis History of GI bleed Erosive esophagitis History of blood transfusion (10/2024) Anemia Hiatal hernia GERD (gastroesophageal reflux disease) Asthma Gallstones Allergies Family History Family History Paternal Aunt Breast cancer Maternal Aunt Lung cancer Family history of problems with anesthesia: No Surgical History Surgical History History of esophagogastroduodenoscopy (EGD) History of hip surgery H/O colonoscopy (~11/18/24) Hx of foot surgery (~1995) History of Problems with Anesthesia: No Social History Social History Household Members: Spouse Are you a primary day care home mother to a significant other at home: No Do you presently have visiting nurse or other home services: No Alcohol intake: current Alcohol intake frequency: holidays/special occasions only Patient Tobacco Use Status: Never used Tobacco Have you been hit, kicked, punched, or otherwise hurt by someone within the past year? If so, by whom?: No Are you DNR?: No Advance Directives: No Advance Directives Information Provided: Yes Current occupational status: employed Current occupation: [employer] Sexual orientation: Straight/Heterosexual Gender identity: Female Meds Allergies Allergy/AdvReac Type Severity Reaction Status Date / Time No Known Allergies Allergy Verified 05/18/25 10:31 Home Medications ?Medication ?Instructions ?Recorded ?Confirmed ?Last Taken ?Type albuterol sulfate 90 mcg/actuation 2 puff inhalation Q4H PRN 11/15/24 05/23/25 11/18/24 History aerosol inhaler Shortness Of Breath Or Wheezing biotin 5,000 mcg chewable tablet mcg PO 05/18/25 Unknown History fexofenadine 60 mg tablet (Cait 60 mg PO BID 05/18/25 05/23/25 Unknown History Allergy) omeprazole 40 mg capsule,delayed 40 mg PO DAILY 05/18/25 05/23/25 05/26/25 History release budesonide 180 mcg/actuation 2 inh inhalation BID 05/23/25 05/23/25 Unknown History breath activated powder inhaler (Pulmicort Flexhaler) Exam Height,Weight and Vital Signs: Height 5 ft 2 in Weight 90.435 kg Assessment and Plan Assessment Anesthesia Assessment: Chart Reviewed Final Anesthetic Review Family History of Problems with Anesthesia: No History of Problems with Anesthesia: No Documented by User: Nataliya Gonzales MD 05/26/25 08:08 [facility] Past Medical History Medical History Seasonal allergic rhinitis History of GI bleed Erosive esophagitis History of blood transfusion (10/2024) Anemia Hiatal hernia GERD (gastroesophageal reflux disease) Asthma Gallstones Allergies Family History Family History Paternal Aunt Breast cancer Maternal Aunt Lung cancer Surgical History Surgical History History of esophagogastroduodenoscopy (EGD) History of hip surgery H/O colonoscopy (~11/18/24) Hx of foot surgery (~1995) Social History Social History Household Members: Spouse Are you a primary day care home mother to a significant other at home: No Do you presently have visiting nurse or other home services: No Alcohol intake: current Alcohol intake frequency: holidays/special occasions only Patient Tobacco Use Status: Never used Tobacco Have you been hit, kicked, punched, or otherwise hurt by someone within the past year? If so, by whom?: No Are you DNR?: No Advance Directives: No Advance Directives Information Provided: Yes Current occupational status: employed Current occupation: [employer] Sexual orientation: Straight/Heterosexual Gender identity: Female Meds Allergies Allergy/AdvReac Type Severity Reaction Status Date / Time No Known Allergies Allergy Verified 05/18/25 10:31 Home Medications ?Medication ?Instructions ?Recorded ?Confirmed ?Last Taken ?Type albuterol sulfate 90 mcg/actuation 2 puff inhalation Q4H PRN 11/15/24 05/23/25 11/18/24 History aerosol inhaler Shortness Of Breath Or Wheezing biotin 5,000 mcg chewable tablet mcg PO 05/18/25 Unknown History fexofenadine 60 mg tablet (Cait 60 mg PO BID 05/18/25 05/23/25 Unknown History Allergy) omeprazole 40 mg capsule,delayed 40 mg PO DAILY 05/18/25 05/23/25 05/26/25 History release budesonide 180 mcg/actuation 2 inh inhalation BID 05/23/25 05/23/25 Unknown History breath activated powder inhaler (Pulmicort Flexhaler) Exam Airway Mallampati Class: II TM Dist: >3cm Neck ROM: Full Heart: rrr Lungs: cta Assessment and Plan Assessment Anesthesia Assessment: Anesthesia Plan Discussed Final Anesthetic Review NPO: Yes ASA Class: II Final Preanesthetic Review: No Changes in Pt Med Stat, Meds/Allgs Chart Reviewed, Consent Obtained/Reviewed and Anes Risks/Benef Reviewed Patient Risk: Low Procedure Risk: Low Assessment/Block/Sedation in SS: Assess/Block/Sedation-SS Anesthetic Plan Anesthetic Plan: MAC: Disposition: Standard PACU
[2025-05-26 06:26] VITALS: BP 150/93; PULSE 59; RESP 18; TEMP 36.4; O2SAT 98; BMI 37.4
[2025-05-26] MEDS: Lactated Ringers 1,000 ML 100 ML IVCONT (06:50)
--- NOTE | 2025-05-26 07:29 | MHC.SHP ---
Pre-Procedural Eval Section A - 24 Hr Update-Section A only Date of Service: 05/26/25 Section B - Complete if H&P > 30 days Chief Complaint: Morocho's esophagus without dysplasia,ulcer Details of Present Illness: see H&P no changes Relevant Family History (Specify if Yes): No Relevant Social History: None Present Medications: see Short Stay Collaborative assessment Medical History: No relevant PMH History of Previous Operations: Relevant previous surgery/procedure and date(s) Allergies: Allergies Allergy/AdvReac Type Severity Reaction Status Date / Time No Known Allergies Allergy Verified 05/18/25 10:31 Review of Systems Sugical H&P ROS: Negative: Constitution, Cardiovascular, Respiratory, Neurological, Psychiatric, Hem-Onc, Allergic/Immunologic, Gastrointestinal, Genitourinary, Musculoskeletal, Integumentary, Endocrine and Eyes/Ears/Nose/Throat Exam Surgical H&P Exam: Normal: HEENT, Normal: Heart, Normal: Lungs, Normal: Extremities, Normal: Abdomen, Normal: Skin and Normal: Neurological Plan Diagnosis/Plan: Unchanged I have reviewed the history and physical and performed a pertinent physical examination on my patient. No changes have occurred unless specified. Time Spent With Patient Time: Total time managing care of this patient today ____ minutes.
[2025-05-26 08:05] VITALS: BP 104/61; PULSE 75; RESP 16; TEMP 36.6; O2SAT 95
[2025-05-26 08:20] VITALS: BP 106/79; PULSE 75; RESP 16; TEMP 36.3; O2SAT 98
--- NOTE | 2025-05-26 08:50 | OP_ITS ---
DATE OF SERVICE: 05/26/2025 SURGEON: Christo Pierce MD INDICATIONS: Morocho esophagus, upper GI bleeding, and Justus erosions PREOPERATIVE DIAGNOSIS: POSTOPERATIVE DIAGNOSIS: PROCEDURE PERFORMED: Upper endoscopy with biopsy. ESTIMATED BLOOD LOSS: COMPLICATIONS: ANESTHESIA: Monitored anesthesia care. ASSISTANTS: SPECIMENS: DESCRIPTION OF PROCEDURE: A history and physical was performed. The risks and benefits of the procedure were explained to the patient. Informed consent was obtained. The patient was placed in the left lateral decubitus position. The Olympus video gastroscope was introduced into the esophagus, stomach, and duodenum. Examination was performed. The scope was removed. She tolerated the procedure well and was returned to the recovery area in stable condition. FINDINGS: Esophagus: The esophagus showed changes of Morocho esophagus without any raised lesions or ulcerated areas. Biopsies were obtained in all 4 quadrants beginning from the EG junction and extending cranially. There was no esophagitis. Stomach: There was a 7 cm hiatal hernia with 2 small Justus erosions at the junction of the hiatal hernia. Biopsies were obtained from the stomach, and the antrum was normal. Duodenum: The bulb and 2nd portion were normal. IMPRESSION: 1. Morocho esophagus. 2. Justus erosions. RECOMMENDATION: Follow up the biopsy results. MD ALEKS Lazo/ROCHELLEL / [id number]
== END 2025-05-26 08:45 | disposition home or self-care (01) ==
PROVIDERS: PCP Family Medicine; Visit Provider Internal Medicine Gastroenterology
PROC: 0DJ08ZZ Inspection of Upper Intestinal Tract, Via Natural or Artificial Opening Endoscopic (ICD-10-PCS; CPT 43235; principal; 2025-05-26 07:30)
DX: K22.710 Barrett's esophagus with low grade dysplasia (principal); K20.80 Other esophagitis without bleeding; K25.4 Chronic or unspecified gastric ulcer with hemorrhage; K44.9 Diaphragmatic hernia without obstruction or gangrene; D64.9 Anemia, unspecified; J45.909 Unspecified asthma, uncomplicated; Z79.51 Long term (current) use of inhaled steroids; Z79.899 Other long term (current) drug therapy; Z98.890 Other specified postprocedural states
CPT/HCPCS: 43239; 88305; 88313; 88342; J2704

== ENCOUNTER 2025-08-16 07:27 | Outpatient (REF) | payer OTHER, SELFPAY ==
--- OUTSIDE RECORDS SUMMARY | 2024-11-18 03:30 | XMS_ITS ---
Author Organization [facility] Address [address] [place] [address] Care Team Providers Care Brewery Worker Name Role Phone Ann Cuevas M.D. Primary Care Provider Unavail Christo Weeks Jr Unavailable REASON FOR VISIT fe def anemia, Heme positive stools, abn ct scan gi tract Problems Problem Type SNOMED Code ICD Code Onset Dates Problem Status W/U Status Risk Notes Problem Iron deficiency anemia (01567875) Iron deficiency anemia (D50.9) Active confirmed Problem Erosive esophagitis (16913255) Erosive esophagitis (K22.10) Active confirmed Problem Gastric ulcer (617874245) Gastric ulcer (K25.9) Active confirmed Encounters Encounter Location Date Provider Diagnosis [facility] [address] [place] [phone] 11/18/2024 Christo Pierce Jr Heme + stool R19.5 ; Iron deficiency anemia D50.9 ; Abnormal abdominal CT scan R93.5 ; Erosive esophagitis K22.10 and Gastric ulcer K25.9 Assessments Encounter Date Diagnosis (ICD Code) Assessment Notes Treatment Notes Treatment Clinical Notes Section Notes 11/18/2024 Heme + stool (ICD-10 - R19.5) 11/18/2024 Iron deficiency anemia (ICD-10 - D50.9) 11/18/[address] scan (ICD-10 - R93.5) 11/18/2024 Erosive esophagitis (ICD-10 - K22.10) 11/18/2024 Gastric ulcer (ICD-10 - K25.9) Plan Of Treatment Next Appt Details Provider Name:Christo Jos Sow arnold Jr, 09/04/2025 11:20:00 AM, [address], [address], [place], [address], Progress Notes * MERRITT CORDONB: 7 (60 yo F)Acc No.[id number]:11/18/2024 EGD and COL/MAC Patient: DAXA LEON Provider: Jessica Pierce MD :1965 A ge:59 Y S ex:Female Date:11/18/2024 Address:[address] [place] [address] , [facility] Pcp:Ann Cuevas M.D. Subjective: * Chief Complaints: * 1 . fe def anemia, Heme positive stools, abn ct scan gi tract. * Medical History: Objective: * Vitals: Assessment: * Assessment: 1. H suraj + stool - R19.5 (Primary) 2 . I ena deficiency anemia - D50.9 3 [address] A bnormal abdominal CT scan - R93.5 4 . E rosive esophagitis - K22.10 5 . G astric ulcer - K25.9 Plan: * Treatment: * Procedure Codes: 4 5378 DIAGNOSTIC COLONOSCOPY, 0529F INTRVL 3+YRS PTS CLNSCP DOCD, 0528F RCMND FLW-UP 10 YRS DOCD, [address] UPPER GI ENDOSCOPY, BIOPSY * * The named appointment provid er may or may not be the originator of this progress note, and it is not deemed complete until electronically signed by the appointment provider. Sign off status: Pending * Provider: Jessica Pierce MD Date: 0 11/18/2024 Generated for Kya vaz/Alphonse/Nerismitting on: 1 07:28 AM EDT
--- OUTSIDE RECORDS SUMMARY | 2025-05-26 03:30 | XMS_ITS ---
Author Organization [facility] Address [address] [place] [address] [place] [phone] Care Team Providers Care Bending Frame Operator Name Role Phone Ann Cuevas M.D. Primary Care Provider Unavail Christo Weeks Jr REASON FOR VISIT raines's. erosive esophagitis Encounters Encounter Location Date Provider Diagnosis [facility] [place] [address] [place] [id number] 05/26/2025 Christo Pierce Jr Plan Of Treatment Next Appt Details Provider Name:Christo barrett Jr, 09/04/2025 11:20:00 AM, [address] [place] [address], Suite [facility], [place], [address], Progress Notes * CHARLIE CORDONIDOB: 7 (60 yo F)Acc No.[id number]:05/26/2025 EGD/MAC Patient: DAXA LEON Provider: Jessica Pierce MD :1965 A ge:60 Y S ex:Female Date:05/26/2025 Address[phone] Pcp:Ann Cuevas M.D. Subjective: * Chief Complaints: * 1 . Raines's. erosive esophagitis. * Medical History: Objective: * Vitals: Assessment: Plan: * Treatment: * * The named appointment provid er may or may not be the originator of this progress note, and it is not deemed complete until electronically signed by the appointment provider. Sign off status: Pending * Provider: Jessica Pierce MD Date: 0 05/26/2025 Generated for Kya vaz/Alphonse/Josh on: 07:28 AM EDT
--- OUTSIDE RECORDS SUMMARY | 2025-08-16 07:28 | XMS_ITS | Patient Health Record ---
Author Organization [facility] Address [address] [place] [address] Care Team Providers Care Survey Superintendent Name Role Phone Ann Cuevas M.D. Primary Care Provider Christo Mckoy Jr Unavailable Allergies Allergen (clinical drug ingredient) Drug/Non Drug Allergy documented on EMR Reaction Allergy Type Onset Date Status Soy Isoflavones sensitivity Drug Allergy Active Results Component Value Reference Range Notes Complete Blood Count no Diff Reviewed date:11/18/2024 01:56:33 PM Interpretation: Performing Lab:[facility], [address] [place] [phone] Notes/Report: White Blood Count 4.1 4.8-10.8 X10*3/uL [...] Pathology Reviewed date:11/24/2024 11:15:10 AM Interpretation: Performing Lab:[facility], [address] [place] [address] Notes/Report: Pathology Reviewed date:05/31/2025 04:21:08 PM Interpretation: Performing Lab:[facility], [address] [facility], [place] [address] Notes/Report: Reason For Referral Referring Provider First Name Piyush Referring Provider Last Name Brian (JOSE RED) Referring Provider Speciality Internal edicine Referred Organization [facility] Referred Provider Christo Pierce Jr Referred Address [address] [place] [phone], Referred Provider Specialty Gastroentero logy General Notes Meliza Pak 024 03:43:00 PM EST > call Dr. Torres's office at [phone] to request a [place]endota pilgrim referral for visit with Dr. Pierce [...] ORIGINAL REFERRAL ONCE SHE RECEIVES IT FROM [facility] Referral Priority Routine Referring Provider First Name Piyush Referring Provider Last Name Brian (JOSE RED) Referring Provider Speciality Internal M edicine Referred Organization [facility] Referred Provider Christo Pierce Jr Referred Address [address] [place] [phone],[place] Referred Provider Specialty Gastroentero logy General Notes Meliza Pak 2024 09:52:07 AM >requested a new mendota pilgrim referral from Dr. Torres's office for procedure on 05-26-2025. I spoke with the patient to have her check with [facility] to make sure this referral is still valid after Dr. Torres retires Referral Priority Routine Referring Provider First Name Ann Referring Provider Last Name Faith [facility] Referred Provider Christo Pierce Jr Referred Address [address] [facility] [address],[place],[address],[place] Referred Provider Specialty Gastroentero logy General Notes Meliza Pak 2024 02:11:26 PM >request referral from Dr. Patricio's office for visit with Dr. Pierce on 09-04-2025, Meliza Pak 08/04/2025 09:28:32 AM >requested referral from Theresa at Dr. Joya office Referral Priority Routine Medications Medication SIG (Take, Route, Frequency, Duration) Notes Start Date End Date Status Omeprazole 40 MG TAKE 1 CAPSULE BY [facility] DAILY for 90 Active Albuterol Sulfate HFA [...] Problem Status W/U Status Risk Notes Problem 254668976 Colon cancer screening (Z12.11) Active confirmed Problem 64941619 Encounter for ot her preprocedural examination (Z01.818) Active confirmed Problem Barretts esophagus (186649302) Barretts esophagus (K22.70) Active confirmed Problem Iron deficiency anemia (99624254) Iron deficiency anemia (D50.9) Active confirmed Problem 176900352 Abnormal CT scan , gastrointestinal tract (R93.3) Active confirmed Problem Erosive esophagitis (53499142) Erosive esophagitis (K22.10) Active confirmed Problem 94342991 Heme positive st ool (R19.5) Active confirmed Problem 79714587 Iron deficiency anemia, unspecified iron deficiency anemia type (D50.9) Active confirmed Problem Gastric ulcer (931611030) Gastric ulcer (K25.9) Active confirmed Vital Signs Temperature 98.2 degrees Fahrenheit 03/22/2025 Blood pressure diastolic 01 mm Hg 03/22/2025 Height 62 in 03/22/2025 Blood pressure systolic 001 mm Hg 03/22/2025 Weight 199.6 lbs 03/22/2025 BMI 36.5 kg/m2 03/22/2025 Encounters Encounter Location Date Provider Diagnosis [facility] [place] [address] [place] [id number] 11/18/2024 Christo Pierce Jr Heme + stool R19.5 ; Iron deficiency anemia D50.9 ; Abnormal abdominal CT scan R93.5 ; Erosive esophagitis K22.10 and Gastric ulcer K25.9 [facility] [address] [place] [id number] 05/26/2025 Christo Pierce Jr [facility] [address] [place] [phone] 10/26/2024 Christo Pierce Jr Iron deficiency anemia, unspecified iron deficiency anemia type D50.9 ; Heme positive stool R19.[address] scan, gastrointestinal tract R93.3 [facility] [address] [place] [phone] 03/22/2025 Christo Pierce Jr Erosive esophagitis K22.10 and Barretts esophagus K22.70 [facility] [address] [place] [phone] 10/17/2024 Christo Pierce Jr [facility] [address] [place] [phone] 11/24/2024 Christo Pierce Jr [facility] [address] [place] [phone] 04/26/2025 Christo Pierce Jr [facility] [address] [place] [phone] 05/31/2025 Christo Pierce Jr [facility] [address] [place] [address] 07/31/2025 Christo Pierce Jr Assessments Encounter Date Diagnosis [...] Next Appt Details Provider Name:Christo barrett , 09/04/2025 11:20:00 AM, [address] [place] [address], [address], [place], [address], Insurance Providers Payer Name Payer Address Payer Phone Subscriber Number Group Number Insured Name Patient Relationship to Insured Coverage Start Date Coverage End Date [facility] [address] [place] [id number] DAXA CORDON Self - patient is the insured Medical (General) History Medical History History ICD Code Asthma Gastroesophageal reflux dise ase/hiatal hernia EGD 12/10, erosive esophagitis with Morocho's changes and Justus erosions. Seasonal allergic rhinitis Colonoscopy 12/10, normal, 10-year follow -up Surgical History Surgery Date(Month/Year) dislocated hip 1985 Left foot fracture, surgical repair 1995
== END 2025-08-16 07:28 | disposition home or self-care (01) ==
LOC: HO.MAMMO 07:27
PROVIDERS: PCP Internal Medicine; Visit Provider Internal Medicine
DX: Z12.31 Encounter for screening mammogram for malignant neoplasm of breast (principal)
CPT/HCPCS: 77063; 77067

== ENCOUNTER → 2025-08-16 07:30 | Outpatient (BNV) | payer OTHER, SELFPAY | PROVIDERS: PCP Internal Medicine; Visit Provider Internal Medicine | DX: Z12.31 Encounter for screening mammogram for malignant neoplasm of breast (principal) | CPT/HCPCS: 77063; 77067 ==